=== PATIENT | male | born 1960 | race Caucasian/White ===

== ENCOUNTER 2020-11-03 10:30 | Emergency (ER) | payer MEDICARE, SELFPAY ==
[2020-11-03] VITALS (15 sets, daily range): BP systolic 121–144; BP diastolic 87–105; PULSE 55–78; RESP 16–22; TEMP 36.1; O2SAT 94–100
--- NOTE | ~2020-11-03 | XR_ITS ---
XR chest 2V DATE: 11/03/2020 11:07 INDICATION: Right-sided chest pain radiating to back. History of COPD, smoking. TECHNIQUE: PA and lateral views COMPARISON: 02/21/2019 2 view chest FINDINGS: Normal heart size. Mild atelectasis or fibrotic change of the lung bases. No pulmonary cons olidation, pleural effusion, pulmonary vascular congestion, adenopathy or pneumothorax is evident. IMPRESSION: Mild atelectasis or fibrotic change at the lung bases; otherwise no active cardiac pulmon kristyn disease Reviewed, dictated and finalized at location A. IMPRESSION: Mild atelectasis or fibrotic change at the lung bases; otherwise no active cardiac pulmonary disease
--- NOTE | 2020-11-03 10:34 | ECG_ITS ---
Measurements Intervals [place] Rate: 70 P: 33 PA: 154 QRS: 43 QRSD: 97 T: 32 QT: 380 QTc: 412 Interpretive Statements SINUS RHYTHM BASELINE ARTIFACT- I, II, III, AVR, AVF, V2-V6 NORMAL ECG Electronically Signed On 11-03-2020 17:06:45 CDT by Torito Raya D.O.
--- NOTE | 2020-11-03 10:42 | ED.GENADULT ---
HPI - General Adult General Chief complaint: Chest Pain Stated complaint: chest pain Time Seen by Provider: 11/03/20 10:35 Source: patient Mode of arrival: ambulatory Limitations: no limitations History of Present Illness HPI narrative: Patient presents for evaluation of right-sided chest pain since 11/01/2020 at 1700. He indicates he knocked a glass off the counter and bent over to catch it. In the process of doing so he felt abrupt onset of right-sided chest pain. Pain has been constant since that time but is progressively worsening. He describes the pain as stabbing but does not provide me with a numerical rating. He states that pain currently is not that bad . He also reports right-sided subscapular pain. Denies any shortness of breath, cough, leg swelling. No underlying history of hypertension, hyperlipidemia, diabetes. He does smoke half a pack per day. No illicit drug use. Related Data Home Medications Medication Instructions Recorded Confirmed tiotropium bromide 2.5 2 puff INHALATION DAILY 09/10/20 09/10/20 mcg/actuation mist for inhalation Allergies Allergy/AdvReac Type Severity Reaction Status Date / Time codeine Allergy Mild Unknown Verified 09/10/20 08:26 Review of Systems Review of Systems: Narrative: CONSTITUTIONAL: Denies fever, chills, or sweats. EYES: Denies visual changes, redness, or discharge. ENT: Denies rhinorrhea, congestion, sore throat, or otalgia. CARDIOVASCULAR: Reports right-sided chest pain. Denies palpitations, or edema. RESPIRATORY: Denies cough or dyspnea. GASTROINTESTINAL: Denies abdominal pain, nausea, vomiting, or diarrhea. GENITOURINARY: Denies dysuria or hematuria. SKIN: Denies rash or itching. MUSCULOSKELETAL: Reports right-sided back pain in the scapular region. Denies joint pain, or myalgia. NEUROLOGIC: Denies headache, numbness, dizziness, or weakness. PSYCHIATRIC: Denies anxiety or depression. [facility] Past Medical History Medical History COPD (chronic obstructive pulmonary disease) Tobacco use Surgical History Surgical History No pertinent past surgical history Family History Family History Father Alcoholism Mother Heart disease Social History Social History Smoking status: Current every day smoker Tobacco type: cigarettes Alcohol intake: current Substance use: never Substance use type: does not use Living arrangements: with family Gender identity (if verbalized by the patient): Male Sexual Orientation (if Verbalized by the Patient): Straight or Heterosexual Spiritual care concerns: No Exam Narrative: Exam Narrative: GENERAL: Well-appearing, well-nourished, and in no acute distress. HEAD: Normocephalic, atraumatic. EYES: PERRLA and EOMI. ENT: Nares clear, no rhinorrhea or epistaxis. Mucous membranes moist. Oropharynx without tonsillar hypertrophy exudate or other lesions. Bilateral TMs pearly hidalgo nonbulging NECK: Supple. No adenopathy or masses. No carotid bruits or JVD CHEST: No chest wall tenderness. Clear to auscultation. No respiratory distress. No wheezes rales or rhonchi HEART: Regular rate and rhythm. No murmur heard. Normal peripheral pulses. ABDOMEN: Soft, nontender, nondistended, normal active bowel sounds. EXTREMITIES: Normal range of motion. No edema. SKIN: Warm, dry, no rash. NEURO: No focal deficits. Alert and oriented x3. PSYCH: Normal mood and affect. Course Course Emergency Course: This is a 60-year-old male who presented with right-sided chest pain after moving abruptly in an attempt to catch a glass he knocked over two days ago. Trop was negative. EKG with no acute ischemic changes. CXR with no evidence of rib fracture. He was given toradol and flexeril with some improvement. He was later given norco and had near complete
[2020-11-03 10:50] LABS: Basophils Absolute Auto 0.1 K/mm3 (0.0-0.1); Basophils Percent Auto 0.6 % (0.2-1.2); Eosinophils Absolute Auto 0.5 K/mm3 (0-0.3); Eosinophils Percent Auto 5.1 % (0-4.4); Hematocrit 49.6 % (42.0-52.0); Hemoglobin 15.8 g/dL (14.0-18.0); Immature Granulocyte Absolute 0.02 K/mm3 (0.00-0.031); Immature Granulocyte Percent A 0.2 % (0-0.5); Lymphocytes Absolute Auto 2.38 K/mm3 (0.9-3.2); Mean Corpuscular HGB Conc 31.9 g/dl (32-36); Mean Corpuscular Hemoglobin 27.1 pg (26-34); Mean Corpuscular Volume 85.2 fl (80-100); Monocytes Absolute Auto 0.8 K/mm3 (0.1-0.6); Monocytes Percent Auto 8.8 % (2.6-8.5); Neutrophils Absolute Auto 5.1 K/mm3 (1.3-6.7); Neutrophils Percent Auto 58.3 % (45.5-73.1); Platelet Count Result 198 k/mm3 (150-375); Red Blood Count 5.82 M/mm3 (4.6-6.20); Red Cell Distribution Width 14.7 % (11.5-14.5); White Blood Count 8.8 K/mm3 (4.5-10.0)
[2020-11-03] MEDS: CYCLOBENZAPRINE HCL 10 MG TABLET PO (10:55)
[2020-11-03] MEDS: KETOROLAC 30 MG/ML VIAL (*BKC) IV PUSH (10:55)
[2020-11-03 11:00] LABS: Alanine Aminotransferase 14 U/L (4-50); Albumin Level 4.1 g/dL (3.5-5.1); Alkaline Phosphatase 101 U/L (38-126); Anion Gap 3 mmol/L (8-16); Aspartate Amino Transferase 21 U/L (17-59); Bilirubin,Total 0.6 mg/dL (0.2-1.3); Blood Urea Nitrogen 14 mg/dL (9-20); Calcium 9.2 mg/dL (8.4-10.2); Carbon Dioxide 30 mmol/L (22-30); Chloride 106 mmol/L (98-107); Estimated CRCL calculation 79 ml/min; Estimated Glomerular Filt Rate > 60; Glucose 136 mg/dL (75-110); Magnesium 2.1 mg/dL (1.6-2.3); Potassium 4.2 mmol/L (3.4-5.0); Sodium 139 mmol/L (137-145)
[2020-11-03 11:11] LABS: Troponin I < 0.012 ng/mL (0.000-0.034)
[2020-11-03] MEDS: HYDROcodone/acetaminophen (*CRX) 5-325 MG TABLET 2 TAB PO (11:28)
== END 2020-11-03 12:34 | disposition home or self-care (01) ==
PROVIDERS: Emergency Provider Nurse Practitioner; PCP Family Medicine
DX: S29.011A Strain of muscle and tendon of front wall of thorax, initial encounter (principal); J44.9 Chronic obstructive pulmonary disease, unspecified; F17.210 Nicotine dependence, cigarettes, uncomplicated; X50.9XXA Other and unspecified overexertion or strenuous movements or postures, initial encounter
CPT/HCPCS: 36415; 71046; 80053; 83735; 84484; 85025; 93005; 96374; 99284; A9270; J1885

== ENCOUNTER 2022-12-19 10:09 | Emergency (ER) | payer MEDICARE, SELFPAY ==
--- NOTE | ~2022-12-19 | XR_ITS ---
EXAMINATION: XR hand LT min 3V INDICATION: Left hand pain, initial encounter TECHNIQUE: Three views of the left hand are obtained. COMPARISON: None available FINDINGS: There is an acute, traumatic, closed, transverse fracture at the base of the fifth metacarp al with minimal widening at the fracture site. No additional fracture is identified. There is soft ti ssue swelling adjacent to the fracture. 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 IMPRESSION: 1. Acute transverse fracture at the base of the fifth metacarpal. Reviewed, dictated and finalized at location A.
[2022-12-19 10:17] VITALS: BP 134/90; PULSE 66; RESP 16; TEMP 37; O2SAT 97
--- NOTE | 2022-12-19 10:45 | ED.EXTPRO ---
HPI - Extremity Problem General Chief complaint: Extremity Injury, Upper Stated complaint: Left Hand Pain Time Seen by Provider: 12/19/22 10:33 Source: patient and RN notes reviewed Mode of arrival: ambulatory Limitations: no limitations History of Present Illness HPI Narrative: Patient presents today complaining of a left hand injury. He fell in the bathtub last night injuring his hand. He currently rates his pain 5/10, which increases with movement. He took some Tylenol and applied ice last night without much relief. Denies numbness or tingling. Related Data Home Medications Medication Instructions Recorded Confirmed budesonide-formoterol HFA 160 inhalation 12/19/22 mcg-4.5 mcg/actuation aerosol inhaler (Symbicort) tiotropium bromide 2.5 inhalation 12/19/22 mcg/actuation mist for inhalation (Spiriva Respimat) Allergies Allergy/AdvReac Type Severity Reaction Status Date / Time codeine Allergy Mild Unknown Verified 12/19/22 10:22 Review of Systems Review of Systems: CONSTITUTIONAL: Denies body aches, fever, chills, or sweats. EYES: Denies visual changes, redness, or discharge. ENT: Denies rhinorrhea, congestion, sore throat, or otalgia. CARDIOVASCULAR: Denies chest pain, palpitations, or edema. RESPIRATORY: Denies cough or dyspnea. GASTROINTESTINAL: Denies abdominal pain, nausea, vomiting, or diarrhea. GENITOURINARY: Denies dysuria or hematuria. SKIN: Denies rash, itching, or wounds. MUSCULOSKELETAL: Denies back pain, or myalgia.+ left hand pain NEUROLOGIC: Denies headache, numbness, tingling, or weakness. PSYCH: Denies depression or anxiety. [facility] Past Medical History Medical History COPD (chronic obstructive pulmonary disease) Tobacco use Surgical History Surgical History No pertinent past surgical history Family History Family History Father Alcoholism Mother Heart disease Social History Social History Smoking status: Current every day smoker Tobacco type: cigarettes Alcohol intake: current Substance use: never Substance use type: does not use Living arrangements: with family Gender identity (if verbalized by the patient): Male Sexual Orientation (if Verbalized by the Patient): Straight or Heterosexual Spiritual care concerns: No Comments At time of signature, I have reviewed and agree with nursing past medical, surgical, social and family history unless otherwise noted. Please see nursing chart for further information. There is no relevant family history pertinent to the presenting complaint Exam Narrative: GENERAL: Well-appearing, well-nourished, and in no acute distress. HEAD: Normocephalic, atraumatic. EYES: EOMI. No redness or drainage. Conjunctivae normal. ENT: Mucous membranes pink and moist. NECK: Normal AROM. CHEST: No respiratory distress. EXTREMITIES: Left hand: Tenderness along the 5th metacarpal with mild localized edema. Distal sensation intact. Capillary refill normal. Radial pulse normal. Full range of motion of all fingers. No tenderness of the wrist. SKIN: Warm, dry, no rash. Capillary refill normal. Normal skin turgor. NEURO: No focal deficits. Alert and oriented x3. Gait steady. PSYCH: Normal affect. No signs of depression or anxiety. Course Course Level of Care: Express Care Visit Vital Signs Vital signs: Vital Signs Temperature 98.6 F 12/19/22 10:17 Pulse Rate 66 12/19/22 10:17 Respiratory Rate 16 12/19/22 10:17 Blood Pressure 134/90 12/19/22 10:17 Pulse Oximetry 97 12/19/22 10:17 Oxygen Delivery Room Air 12/19/22 10:17 Temperature 98.6 F 12/19/22 10:17 Pulse Rate 66 12/19/22 10:17 Respiratory Rate 16 12/19/22 10:17 Blood Pressure 134/90 12/19/22 10:17 Pulse Oximetry 97 12/04
== END 2022-12-19 11:12 | disposition home or self-care (01) ==
PROVIDERS: Emergency Provider Nurse Practitioner; PCP Family Medicine
DX: S62.347A Nondisplaced fracture of base of fifth metacarpal bone, left hand, initial encounter for closed fracture (principal); W18.2XXA Fall in (into) shower or empty bathtub, initial encounter; J44.9 Chronic obstructive pulmonary disease, unspecified; F17.210 Nicotine dependence, cigarettes, uncomplicated
CPT/HCPCS: 29125; 73130; 99214; G0463

== ENCOUNTER 2024-10-01 10:30 | Emergency (ER) | payer MEDICARE, SELFPAY ==
--- OUTSIDE RECORDS SUMMARY | 2024-10-01 10:32 | XMS_ITS | Clinical Summary ---
Author Organization [facility] Address [address] [place] [address] Care Team Providers Care Commodity Management Specialist Name Role Phone Najma Chisholm MD Primary Care Provider [phone] Source Comments [facility],non-owned Affiliates and Associated Physician Practices is amultiple site organization consisting of ambulatory clinics and hospital sitesin [place], [place], [place] and [place]. This disclosure is being madepursuant to the Care Everywhere program and may not contain all information available regarding this patient. Last updated 18.[facility] Allergies No known active allergies Social History Tobacco Use Types Packs/Day Years Used Date Smoking Tobacco: Never Assessed Sex and Gender Information Value Date Recorded Sex Assigned at Not on file Gender Identity Not on file Sexual Orientation Not on file Plan of Treatment Health Maintenance Due Date Last Done Comments COLOGUARD (AGES 45-75) - COL ON CA SCREENING 1958 COLON MONITORING 1958 COLONOSCOPY - COLON CA SCREENING 1958 CT COLONOGRAPHY - COLON CA SCREENING 1960 Colorectal Cancer Screening 1958 FIT - COLON CA SCREENING 1958 FLEX SIG - COLON CA SCREENING 1958 LIPID TESTING 1958 HEPATITIS C SCREENING 01/02/1976 DTAP/TDAP/TD VACCINES (1 - Tdap) 1977 PNEUMOCOCCAL VACCINE 50+ (1 of 1 - PCV) 01/07/2008 ZOSTER VACCINE (1 of 2) 01/07/2008 COVID-19 VACCINE ( - 2023-2 5 season) 2024 INFLUENZA VACCINE (#1) 2024 DEPRESSION SCREENING 07/06/2024 Respiratory Syncytial Virus (RSV) Vaccine Pt: or over 60 yrs (1 - 1-dose 75+ series) 2033 HEPATITIS B VACCINE Aged Out No longe r eligible based on patient's age to complete this topic HIB VACCINE Aged Out No longer eligi ble based on patient's age to complete this topic HPV VACCINE Aged Out No longer eligi ble based on patient's age to complete this topic MENINGOCOCCAL (Group B) VACC INE SHARED DECISION-MAKING Aged Out No longer eligibl e based on patient's age to complete this topic MENINGOCOCCAL GROUPS A/C/Y/W VACCINE Aged Out No longer eligible b ased on patient's age to complete this topic Care Teams Commodity Management Specialist Relationship Specialty Start Date End Date Najma Chisholm MD [address] [place] [address] PCP - General Internal Medicine 12/26/15
--- OUTSIDE RECORDS SUMMARY | 2024-10-01 10:32 | XMS_ITS | Clinical Summary ---
Author Organization [facility] Address [address] [place] [address] Care Team Providers Care Drug Regulatory Affairs Specialist Name Role Phone Cali Jimenes Primary Care Provider Allergies No known active allergies Medications albuterol HFA (Proventil HFA) 90 mcg/actuation inhaler Proventil HFA 90 mcg/actuation aerosol inhaler Inhale 2 puff(s) 3 times a day by inhalation route as needed for 30 days. Active tiotropium bromide (SPIRIVA RESPIMAT) 2.5 mcg/actuation inhaler Inhale 1 puff daily 4 g 1 4 Active guaiFENesin-cod eine (GUAITUSS AC) liquid 100-10 mg/5 mL Take 5-10 mL by mouth every 4 (four) hours as needed for cough 240 mL 4 Active benzonatate (TESSALON) 100 mg capsuleIndicati ons:Cough Take 1 capsule (100 mg total) by mouth 3 (three) times a day as needed for cough 30 capsule 4 Active naproxen (NAPROSYN) 500 mg tablet Take 1 tablet (500 mg total) by mouth 2 (two) times a day with meals 60 tablet 2 4 Active fluticasone-ume clidin-vilanter (Trelegy Ellipta) 200-62.5-25 mcg inhaler Inhale 1 puff daily 5 Active atorvastatin (LIPITOR) 10 mg tabletIndicatio ns:Dyslipidemia Take 1 tablet (10 mg total) by mouth daily 90 tablet 12/27/19 Active Active Problems Problem Noted Date Diagnosed Date Atherosclerosis of white [place] co ronary artery of white [place] heart without angina pectoris 09/27/2024 Overview (09/27/2024): Noted on CT August 2024 Still smoking Ascending aorta dilation 09/27/2024 Overview (09/27/2024): Ascending aorta dilation 4.1cm noted on CT August 2024 Primary osteoarthritis of left knee 07/04/2024 Degenerative joint disease of hand 07/04/2024 Depressive disorder 07/04/2024 Fracture of distal end of radius and ulna 2023 Unintentional weight loss 07/04/2024 Smoking 10/14/2023 Overview (10/14/2023): CT chest screening August - repeat 1 year Smoking about a pack per week (October 2023) Diastolic dysfunction 10/14/2023 Overview (10/14/2023): Noted on Echocardiogram August 2019 No concerns or symptoms or evidence of fluid overload Routine physical examination 10/14/2023 Overview (09/27/2024): May 26, 2023 September 27, 2024 Dyslipidemia 11/07/2020 Overview (10/14/2023): Not on medication at this time Total cholesterol 205 with LDL 148 in May 2023 Pulmonary nodules 12/08/2019 Overview (09/27/2024): Following with Pulmonology Still smoking CT August 2024: Multiple small pulmonary nodules including: Unchanged 3 mm right upper lobe pulmonary nodule Unchanged 2 mm lateral left upper lobe pulmonary nodule Unchanged 2 mm subpleural right medial lower lobe pulmonary nodule versus pleural-parenchymal scarring Centrilobular emphysema 08/16/2019 Overview (10/14/2023): Still smoking but has cut down significantly (October 2023) Doing well overall on current inhalers Continue Spiriva and albuterol p.r.n. Continue with pulmonology - Dr. Palacios GERD (gastroesophageal reflux disease) Overview (09/27/2024): Chronic condition is stable not on medications Continue monitoring diet ANNA (obstructive sleep apnea) 08/16/2019 Pulmonary HTN 08/16/2019 Overview (10/14/2023): Noted on echocardiogram August 2019 No concerns or symptoms Achilles tendinosis 08/03/2019 Closed nondisplaced fracture of body of left calcaneus with routine healing 08/01/2019 Encounters Date Type Department Care Team Description 09/27/2024 8:00 AM CDT Lab [facility] Office Building [address] [place] [id number] Prostate cancer screening; Dyslipidemia; Need for hepatitis B screening test; Need for hepatitis C screening test 09/27/2024 7:30 AM CDT Office Visit [facility] [address] [place] [phone] Cali Jimenes, Centrilobular emphysema (HCC) (Primary Dx); Need for hepatitis C screening test; Diastolic dysfunction; Dyslipidemia; Gastroesophageal reflux disease without esophagitis; Pulmonary HTN (HCC); Routine physical examination; Smoking; Need for hepatitis B screening test; Prostate cancer screening; Atherosclerosis of white earth coronary artery of white earth heart without angina pectoris; Ascending aorta dilation; Pulmonary nodules 09/27/2024 Results Follow-Up [facility] [address] [place] [phone] Cali Jimenes DO Dyslipidemia (Primary Dx) 08/26/2024 Telephone [facility] [address] [place] [phone] Cali Jimenes DO Test Results (Lung CT & Pulmonology and Sleep Medicine Test) 07/04/2024 10:15 AM FLAT SORTING MACHINE CLERK Office Visit [facility] [address] [facility] [address] [place] [address] [place] [phone] Janie Barr PA Acute pain of left knee (Primary Dx); Primary osteoarthritis of left knee 07/04/2024 9:53 AM FLAT SORTING MACHINE CLERK - 07/04/2024 11:59 PM FLAT SORTING MACHINE CLERK Hospital Encounter [facility] Diag Imaging [facility] [place] [address] Acute pain of left knee Discharge Disposition: Discharge to home or self care from Last 3 Months Immunizations Immunization Administration Dates Next Due Influenza, Unspecified 09/27/2024(Deferr ed: Patient Refused),04/13/2024(Deferred: Patient Refused),04/05/2023(Deferred: Patient Refused) Surgical History Surgery Date Site/Laterality Comments FRACTURE SURGERY 2010 Medical History Medical History Date Comments COPD (chronic obstructive pulmonary disease) (HC C) Chronic bronchitis (HCC) Emphysema of lung (HCC) Family History Relation Name Status Comments Father Mother Social History Tobacco Use Types Packs/Day Years Used Date Smoking Tobacco: Every Day Cigarettes 0.5 45.2 Started: 07/06/1979 Smokeless Tobacco: Never Tobacco Cessation:Ready to Q uit: Not Asked; Counseling Given: Not Answered Alcohol Use Standard Drinks/Week Comments Never 0 (1 standard drink = 0.6 oz pur e alcohol) AUDIT-C Answer Date Recorded Q1: How often do you have a drink containing alc ohol? Never 05/02/2020 Average Number of Drinks Not on file 020 Frequency of Binge Drinking Not on file 04/06 PHQ-2 Answer Date Recorded PHQ-2 Total Score (If total score is 3 or more points, staff should administer the PHQ-9) 3 09/26/2024 PHQ-9 Answer Date Recorded PHQ-9 Total Score 10 09/26/2024 Personal Safety Answer Date Recorded Have you ever been in or are you currently in a harmful physical or emotional relationship or is someone making you feel afraid or unsafe? Denies 01/15/2024 Sex and Gender Information Value Date Recorded Sex Assigned at Not on file Legal Sex Male 8:43 PM FLAT SORTING MACHINE CLERK Gender Identity Male 08/24/2023 1:23 PM FLAT SORTING MACHINE CLERK Sexual Orientation Straight 08/24/2023 1: 23 PM FLAT SORTING MACHINE CLERK Obstetrics History Last Filed Vital Signs Vital Sign Reading Time Taken Comments Blood Pressure 116/78 09/27/2024 7:10 AM CDT Pulse 50 09/27/2024 7:10 AM CDT Temperature 36.3 C (97.4 F) 09/27/2024 7:10 AM CDT Respiratory Rate 18 09/27/2024 7:10 AM CDT Oxygen Saturation 99% 09/27/2024 7:10 AM CDT Inhaled Oxygen Concentration - - Weight 88.9 kg (196 lb) 09/27/2024 7:10 AM CDT Height 185.4 cm (6' 1 ) 09/27/2024 7:10 AM CDT Body Mass Index 25.86 09/27/2024 7:10 AM CDT Plan of Treatment Health Maintenance Due Date Last Done Comments DTaP/Tdap/Td Vaccine (1 - Tdap) 1969 Pneumococcal vaccine 65+ (1 of 2 - PCV) 1977 Zoster Vaccine (1 of 2) 01/07/2008 Abdominal Aortic Aneurysm (AAA) Screen 2023 Influenza Vaccine (#1) 2025 Postp oned from 03/06/2024 (Patient declined, but will receive in the future) Lung Cancer Screening 08/19/2025 08/19/2024 , 01/05/2023, 12/25/2021, Additional history exists Depression Screening 09/27/2025 09/27/2024, 09/27/2024, 10/14/2023 Fall Risk Assessment 09/27/2025 09/27/2024, 10/14/19 24 Well Visit 65+ 09/27/2025 09/27/2024, 09/27/2024 Prostate Cancer Screening-PSA 09/27/2026 09/27/2024, 05/26/2023 Colon Cancer Screening-Colonoscopy 08/24/2027 08/24/2017 Colon Cancer Screening-CT Colonography Discontinued 08/24/2017 Colon Cancer Screening-DNA Stool Discontinued 08/24/2017 Colon Cancer Screening-FIT Discontinued 08/24/2017 Colon Cancer Screening-Sigmoidoscopy Discontinued 08/24/2017 Hepatitis B Screening Completed 09/27/2024 Hepatitis C Screening Completed 09/27/2024 Procedures Procedure Name Priority Date/Time Associated Diagnosis Comments EGFR Routine 09/27/2024 7:49 AM CDT Dyslipidemia COMPREHENSIVE METABOLIC PANEL Routine 09/27/2024 7:49 AM CDT Dyslipidemia LIPID PANEL Routine 09/27/2024 7:49 AM CDT Dyslipidemia PSA SCREEN Routine 09/27/2024 7:49 AM CDT Prostate cancer screening HEPATITIS C ANTIBODY Routine 09/27/2024 7:49 AM CDT Need for hepatitis C screening test HEPATITIS B SURFACE ANTIGEN Routine 09/27/2024 7:49 AM CDT Need for hepatitis B screening test HEPATITIS B CORE ANTIBODY, TOTAL Routine 09/27/2024 7:49 AM CDT Need for hepatitis B screening test HEPATITIS B SURFACE ANTIBODY (IMMUNE STATUS) Routine 09/27/2024 7:49 AM CDT Need for hepatitis B screening test XR KNEE LEFT 3 VIEWS Schedule Routine, Read Routine (OP Routine) 07/04/2024 9:59 AM FLAT SORTING MACHINE CLERK Acute pain of left knee COLONOSCOPY Routine 08/24/2017 from Last 3 Months or Most Recently Relevant to Health Maintenance Results * eGFR (09/27/2024 7:49 AM CDT) eGFR >90 >=60 mL/min/1. 73 m2 Comment: Interpretive Data Reference Interval Normal >/= 90 mL/min/1.73m2 Mildly decreased* 60 - 89 mL/min/1.73m2 Mildly to moderately decreased 45 - 59 mL/min/1.73m2 Moderately to severely decreased 30 - 44 mL/min/1.73m2 Severely decreased 15 - 29 mL/min/1.73m2 Kidney Failure < 15 mL/min/1.73m2 *Relative to young adult level Estimated glomerular filtration rate is determined by the 2020 CKD-EPI equation recommended by the National Kidney Foundation (A Unifying Approach to GFR Estimation: Recommendations of the NKF-ASK Task Force on Reassessing the Inclusion of Race in Diagnosing Kidney Disease, JASN 2020). The CKD-EPI equation should not be used for patients with unstable renal function and has not been validated in children and those over 70. Current interpretive data was last reviewed 2021. Testing performed by: [address] [address] Blood 09/27/2024 7:49 AM CDT 09/27/2024 10:05 AM CDT [facility] LAB BLOOD ORDERABLES F inal Result Performing Organization Address [place] Co de Phone Number JAMEY [address] [employer] [address] * PSA screen (09/27/2024 7:49 AM CDT) PSA-Total 0.63 <=5.40 ng/mL Comment: Interpretive Data AGE SEX REFERENCE INTERVAL 0 minutes-150 years Female None 0 minutes-49 years Male None 50-59 years Male 0-3.90 60-69 years Male 0-5.40 70-79 years Male 0-6.20 80-150 years Male 0-6.20 The Agapito PSA Total assay procedure was used. Results from different manufacturers or methods may not be comparable. Serial testing should be performed using the same method. Current interpretive data last revised 21. Testing performed by: [address] [address] Blood 09/27/2024 7:49 AM CDT 09/27/2024 10:05 AM CDT [facility] LAB BLOOD ORDERABLES F inal Result Performing Organization Address [place] Co de Phone Number MARLA[address] [place] [place] [address] * Hepatitis C antibody Blood (09/27/2024 7:49 AM CDT) Hep C Ab Nonreactive Nonreactive Comment: Antibodies to HCV not detected. Does NOT exclude the possibility of recent exposure to HCV. Current interpretive data was last revised on 22 Interpretive Data Nonreactive: Antibodies to HCV not detected. Does NOT exclude the possibility of recent exposure to HCV. Equivocal: Equivocal for HCV antibodies. Supplemental molecular testing will be automatically performed to determine infection status in accordance with current CDC screening recommendations. Reactive: Positive for HCV antibodies. This may represent current or past HCV infection. Supplemental molecular testing will be automatically performed to determine current infection status in accordance with current CDC screening recommendations. Interpretive data was last revised on 2019. Blood 09/27/2024 7:49 AM CDT 09/27/2024 10:21 AM CDT Cali [facility] LAB MICROBIOLOGY - GEN ERAL ORDERABLES Final Result Performing Organization Address [place]/[facility] Co de Phone Number MARLA[address] [place] [address] * Hepatitis B core antibody, total Blood (09/27/2024 7:49 AM CDT) Pathologist [facility] Hep B core IgG/IgM Nonreactive Nonreactive Comment:Testing performed by : [facility], [address] [place]., [address] Blood 09/27/2024 7:49 AM CDT 09/27/2024 1:12 PM CDT [facility] MICROBIOLOGY - GEN ERAL ORDERABLES Final Result Performing Organization Address [place]/[facility] Co de Phone Number [address] [address] * Hepatitis B surface antibody (immune status) Blood (09/27/2024 7:49 AM CDT) Pathologist [facility] HBsAb (immune status) Nonreactive Comment: Interpretive Data Nonreactive: This result is consistent with a lack of immunity to Hepatitis B Virus when used in the setting of routine screening. Equivocal: The immune status of the individual should be further assessed, if appropriate, after consideration of clinical status, risk factors, and additional diagnostic information. Reactive: This result is consistent with immunity to Hepatitis B Virus when used in the setting of routine screening. Current interpretive data was last revised on 19. Blood 09/27/2024 7:49 AM CDT 09/27/2024 10:21 AM CDT Cali Osito Camas DO LAB MICROBIOLOGY - GEN ERAL ORDERABLES Final Result Performing Organization Address [place] Co de Phone Number [place] [phone] [facility] [place] [place] [address] * Hepatitis B Surface Antigen Blood (09/27/2024 7:49 AM CDT) HepBsAg Nonreactive Nonreactive Blood 09/27/2024 7:49 AM CDT 09/27/2024 10:21 AM CDT Cali Osito Jalil DO LAB MICROBIOLOGY - GEN ERAL ORDERABLES Final Result Performing Organization Address [place] de Phone Number [place] [phone] [place] [address] * (ABNORMAL) Lipid panel (09/27/2024 7:49 AM CDT) Cholesterol 211(H) 30 - 199 mg/dL Comment: Interpretive Data Ages < or = 19 years Acceptable: <170 mg/dL Borderline high: 170-199 mg/dL High: >or= 200 mg/dL Ages > or = 20 years Desirable: <200 mg/dL Borderline high: 200-239 mg/dL High: >or= 240 mg/dL Literature References: 1. Expert Panel on Integrated Guidelines for Cardiovascular Health and Risk Reduction in Children and Adolescents. Pediatrics 2011;128:S213 2. NCEP Expert Panel. Circulation 2004;110:227 Current Interpretive Data was last revised on 2018. Testing performed by: [facility], [address] [place] [address]., [address] Triglycerides 131 <=149 mg/dL [facility] Comment: Interpretive Data Ages < or = 9 years Acceptable: <75 mg/dL Borderline high: 75-99 mg/dL High: >or= 100 mg/dL Ages 10 to 20 years Acceptable: <90 mg/dL Borderline high: 90-129 mg/dL High: >or= 130 mg/dL Ages > or = 20 years Desirable: <150 mg/dL Borderline high: 150-199 mg/dL High: 200-499 mg/dL Very high: >or= 499 mg/dL Literature References: 1. Expert Panel on Integrated Guidelines for Cardiovascular Health and Risk Reduction in Children and Adolescents. Pediatrics 2011;128:S213 2. NCEP Expert Panel. Circulation 2004;110:227 Current Interpretive Data was last revised on 2018. Testing performed by: [address] [address] HDL 31(L) >=40 mg/dL JAMEY Comment: Interpretive Data Ages < or = 19 years Acceptable: >45 mg/dL Borderline low: 40-45 mg/dL Low: <40 mg/dL Ages > or = 20 years Desirable: >or= 60 mg/dL Low: <40 mg/dL Literature References: 1. Expert Panel on Integrated Guidelines for Cardiovascular Health and Risk Reduction in Children and Adolescents. Pediatrics 2011;128:S213 2. NCEP Expert Panel. Circulation 2004;110:227 Current Interpretive Data was last revised on 2018. Testing performed by: [address] [address] LDL, calculated 156(H) <=129 mg/dL JAMEY Comment: Interpretive Data Ages < or = 19 years Acceptable: <110 mg/dL Borderline high: 110-129 mg/dL High: >or= 130 mg/dL Ages > or = 20 years Optimal: <100 mg/dL Near optimal: 100-129 mg/dL Borderline high: 130-159 mg/dL High: >160 mg/dL Calculated using the Carlos LDL-C estimating equation. This equation was implemented on 2024. Prior to this date LDL-C was estimated using the Friedewald equation. Literature References: 1. Expert Panel on Integrated Guidelines for Cardiovascular Health and Risk Reduction in Children and Adolescents. Pediatrics 2011;128:S213 2. NCEP Expert Panel. Circulation 2004;110:227 3. Carlos Edward et al. FRAN Cardiol. 2020 November 03;5(5):540-548. doi: 10.1001/[email or web address].2020.0013 Current Interpretive Data was last revised on 2024. Testing performed by: [address] [address] Non-HDL Cholesterol 180 mg/dL JAMEY SAMAYOA Comment: Interpretive Data Ages < or = 19 years Acceptable: <120 mg/dL Borderline high: 120-144 mg/dL High: >145 mg/dL Ages > or = 20 years When triglycerides are >200 mg/dL, Non-HDL cholesterol is a secondary target of therapy with treatment goals that are 30 mg/dL greater than the LDL cholesterol target. Literature References: 1. Expert Panel on Integrated Guidelines for Cardiovascular Health and Risk Reduction in Children and Adolescents. Pediatrics 2011;128:S213 2. NCEP Expert Panel. Circulation 2004;110:227 Current Interpretive Data was last revised on 2018. Testing performed by: [address] [address] Chol/HDL ratio 7 JAMEY Comment:Testing performed by : [address] [address] Blood 09/27/2024 7:49 AM CDT 09/27/2024 10:05 AM CDT Cali Jimenes LAB BLOOD ORDERABLES F inal Result JAMEY [address] [facility] Department of Laboratories [place], [place] [id number] * (ABNORMAL) Comprehensive metabolic panel (09/27/2024 7:49 AM CDT) Sodium 140 135 - 145 mmol/L Comment:Testing performed by : [address] [address] Potassium, pl 4.6 3.3 - 4.9 mmol/L JAMEY SAMAYOA Comment:Testing performed by : [address] [address] Chloride 103 97 - 110 mmol/L JAMEY Comment:Testing performed by : [address] [address] CO2 26 22 - 32 mmol/L JAMEY Comment:Testing performed by : [address] [address] Anion gap 11 2 - 15 mmol/L JAMEY Comment:Testing performed by : [address] [address] BUN 10 6 - 25 mg/dL JAMEY Comment:Testing performed by : [address], [place]., [address] Creatinine 0.90 0.80 - 1.30 mg/dL JAMEY Comment:Testing performed by : [address] [address] Glucose 103 70 - 199 mg/dL JAMEY Comment: Interpretive Data Fasting glucose >/= 126 mg/dl is diagnostic for diabetes. Fasting is defined as no caloric intake for at least 8 hours. Fasting glucose between 100 mg/dl to 125 mg/dl is diagnostic of prediabetes. In a patient with classic symptoms of hyperglycemia or hyperglycemic crisis, a random glucose >/= 200 mg/dl is diagnostic for diabetes. In the absence of unequivocal hyperglycemia, results should be confirmed by repeat testing. The classification and Diagnosis of Diabetes Diabetes Care 2021; 46: S19-S40. Current interpretive data was last revised 2022. Testing performed by: [address] [address] Calcium 9.3 8.5 - 10.3 mg/dL JAMEY Comment:Testing performed by : [address] [address] Bilirubin, total 0.8 0.1 - 1.2 mg/dL JAMEY Comment:Testing performed by : [address] [address] Protein, pl 7.3 6.5 - 8.5 g/dL JAMEY Comment:Testing performed by : [address] [address] Albumin 4.0 3.5 - 5.0 g/dL JAMEY Comment:Testing performed by : [address] [address] Alk phos 114 40 - 130 Units/L JAMEY Comment:Testing performed by : [address] [address] ALT 6(L) 7 - 55 Units/L JAMEY SAMAYOA Comment:Testing performed by : [address] [address] AST 17 10 - 50 Units/L JAMEY SAMAYOA Comment:Testing performed by : [address] [address] Blood 09/27/2024 7:49 AM CDT 09/27/2024 10:05 AM CDT us Cali Mcneill [facility] LAB BLOOD ORDERABLES F inal Result JAMEY SAMAYOA [address] [facility] Department [place] [address] * XR Knee Left 3 Views (07/04/2024 9:59 AM FLAT SORTING MACHINE CLERK) Anatomical Region Laterality Modality Lower Extremities, Knee Left Computed Radiography 07/05/2024 6:40 AM FLAT SORTING MACHINE CLERK Narrative 07/05/2024 6:47 AM FLAT SORTING MACHINE CLERK EXAM DESCRIPTION: XR KNEE LEFT 3 VIEWS REASON FOR STUDY: pain Medial side knee pain x 2 wks, NKI FINDINGS: Three views submitted with comparison 05/14/2021. No acute fractures are identified. There is mild medial and patellofemoral bicompartmental left knee osteoarthritis. Chondrocalcinosis is present with likely extrusion of the medial meniscus into the medial gutter. There is no effusion. IMPRESSION: Mild medial and patellofemoral bicompartmental left knee osteoarthritis. Chondrocalcinosis with likely extrusion of the medial meniscus into the medial gutter. This can be further evaluated with MRI. THIS IS AN ELECTRONICALLY VERIFIED FINAL REPORT 07/05/2024 6:47 AM - Electronically signed by Thor Carcamo M.D. T: Report ID: [id number] Reading Location: [place] [address] Procedure Note Thor Carcamo MD - 07/05/2024 EXAM DESCRIPTION: XR KNEE LEFT 3 VIEWS REASON FOR STUDY: pain Medial side knee pain x 2 wks, NKI FINDINGS: Three views submitted with comparison 05/14/2021. No acute fractures are identified. There is mild medial andpatellofemoral bicompartmental left knee osteoarthritis. Chondrocalcinosis is presentwith likely extrusion of the medial meniscus into the medial gutter. There isno effusion. IMPRESSION: Mild medial and patellofemoral bicompartmental left kneeosteoarthritis. Chondrocalcinosis with likely extrusion of the medial meniscus into the medial gutter. This can be further evaluated with MRI. THIS IS AN ELECTRONICALLY VERIFIED FINAL REPORT 07/05/2024 6:47 AM - Electronically signed by Thor Carcamo M.D. T: Report ID: [id number] Reading Location: [id number] Janie FLORES IMG XR PROCEDURES Final R esult * Colonoscopy (08/24/2017) Anatomical Region Laterality Modality Other Historical Provider ENDOSCOPY PROCEDURES Arlen l Result from Last 3 Months or Most Recently Relevant to Health Maintenance Insurance [employer] MEDICARE HMO HU[employer] MEDICARE HMO Care Teams Drug Regulatory Affairs Specialist Relationship Specialty Start Date End Date Cali Jimenes DO PCP - General Family Practice 12/22/22
--- OUTSIDE RECORDS SUMMARY | 2024-10-01 10:32 | XMS_ITS | Clinical Summary ---
Author Organization [facility] Address [address] [place] [address] Phone Care Team Providers Care Locomotive Engineer Name Role Phone Cali Jimenes Primary Care Provider Mello Palacios MD Unavailable Allergies No known active allergies Medications omeprazole (PRILOSEC) 20 MG CAPSULE DELAYED RELEASE Take 20 mg by mouth daily. Active albuterol 108 (90 Base) MCG/ACT Aerosol Solution take 2 Puffs by inhalation every 4 hours as needed. Active atorvastatin (LIPITOR) 20 MG Tablet Take 20 mg by mouth daily. 0 Active budesonide-form oterol fumarate (SYMBICORT) 160-4.5 MCG/ACT Aerosol take 2 Puffs by inhalation 2 times daily. 10.7 g 3 2 Active Additional Information Patient not taking.Reported on 07/18/2024 tiotropium (SPIRIVA RESPIMAT) 2.5 MCG/ACT Aerosol Solution take 2 Puffs by inhalation daily. 10.7 g 3 2 Active Fluticasone-Ume clidin-Vilant (Trelegy Ellipta) 100-62.5-25 MCG/ACT AEROSOL POWDER, BREATH ACTIVATED take 1 Puff by inhalation daily. 1 Each 6 5 Active Fluticasone-Ume clidin-Vilant (Trelegy Ellipta) 200-62.5-25 MCG/ACT AEROSOL POWDER, BREATH ACTIVATEDIndica tions:Centrilob ular emphysema (HCC) take 1 Puff by inhalation daily. 5 Active Active Problems Problem Noted Date Diagnosed Date Nodule of upper lobe of right lung 12/08/2019 Centrilobular emphysema 08/16/2019 Tobacco use disorder 08/16/2019 Pulmonary HTN 08/16/2019 GERD (gastroesophageal reflux disease) 0 ANNA (obstructive sleep apnea) 08/16/2019 Encounters Date Type Department Care Team Description 08/23/2024 Results Follow-Up [facility] Pulmonology & Sleep Medicine [facility] [address] [place] [address] Mello Palacios MD Personal history of tobacco use, presenting hazards to health (Primary Dx) 08/19/2024 9:33 AM SOLICITING FREIGHT AGENT - 08/19/2024 11:59 PM SOLICITING FREIGHT AGENT Hospital En[facility] [address] [place] [address] Mello Palacios MD Discharge Disposition: Discharged to home or Selfcare 08/17/2024 Travel 08/02/2024 Telephone [facility] Pulmonology & Sleep Medicine [facility] [address] [place] [address] Mello Palacios MD Medication Management 07/31/2024 Travel 07/27/2024 10:48 AM SOLICITING FREIGHT AGENT - 07/27/2024 11:59 PM SOLICITING FREIGHT AGENT Hospital Encounter [facility] Respiratory Therapy [address] [place] [address] Mello Palacios MD Discharge Disposition: Discharged to home or Selfcare 07/25/2024 Travel 07/18/2024 10:45 AM SOLICITING FREIGHT AGENT Office Visit [facility] Pulmonology & Sleep Medicine [facility] [address] [place] [address] Mello Palacios MD Centrilobular emphysema (HCC) (Primary Dx); Nodule of upper lobe of right lung; Tobacco use disorder Discharge Disposition: Discharged to home or Selfcare 07/16/2024 Travel from Last 3 Months Family History Medical History Relation Name Comments Alcohol Abuse Father Heart Disease Mother Relation Name Status Comments Father Mother Social History Tobacco Use Types Packs/Day Years Used Date Smoking Tobacco: Some Days Cigarettes 0.5 40 Smokeless Tobacco: Never Tobacco Cessation:Ready to Q uit: Yes; Counseling Given: Yes Comments:donw to a couple a day Alcohol Use Standard Drinks/Week Comments Never 0 (1 standard drink = 0.6 oz pur e alcohol) AUDIT-C Answer Date Recorded Frequency of Alcohol Consumption Never 08/16/2019 Average Number of Drinks Not on file 020 Frequency of Binge Drinking Not on file 08/06 Sexually Active Control Partners Comments Not Currently Sex and Gender Information Value Date Recorded Sex Assigned at Not on file Legal Sex Male 11:58 PM CDT Gender Identity Not on file Sexual Orientation Not on file Last Filed Vital Signs Vital Sign Reading Time Taken Comments Blood Pressure 120/72 07/18/2024 11:04 AM SOLICITING FREIGHT AGENT Pulse 70 07/18/2024 11:04 AM SOLICITING FREIGHT AGENT Temperature 36.4 C (97.6 F) 07/18/2024 11:04 AM SOLICITING FREIGHT AGENT Respiratory Rate 14 07/18/2024 11:04 AM SOLICITING FREIGHT AGENT Oxygen Saturation 96% 07/18/2024 11:04 AM SOLICITING FREIGHT AGENT Inhaled Oxygen Concentration - - Weight 90.4 kg (199 lb 4.8 oz) 07/18/2024 11:04 AM SOLICITING FREIGHT AGENT Height 188 cm (6' 2 ) 07/18/2024 11:04 AM SOLICITING FREIGHT AGENT Body Mass Index 25.59 07/18/2024 11:04 AM SOLICITING FREIGHT AGENT Plan of Treatment Upcoming Encounters Date Type Department Care Team (Late st Contact Info) Description 10/21/2024 10:15 AM CDT Office Visit [facility] - Pulmonology & Sleep Medicine [facility] [address] [place] [phone] Mello Palacios MD [address] [facility] [address] Health Maintenance Due Date Last Done Comments Hepatitis C Virus (HCV) Screening 1960 TdaP Immunization 1960 Pneumococcal Immunization (50+ years) (1 of 2 - PCV) 1977 Cologuard 01/07/2008 Immunochemical Fecal Occult Blood 01/07/2008 Zoster Immunization (1 of 2) 01/07/2008 PSA Discussion 2013 Respiratory Syncytial Virus (RSV) Immunization (Adult) (1 - Risk 60-74 years 1-dose series) 2018 AAA Screening Ultrasound 2023 Influenza Immunization (#1) 2024 SARS-COV-2 Immunization ( season) 2024 Lung Cancer Screening 08/19/2025 08/19/2024 , 01/05/2023, 12/25/2021, Additional history exists Colonoscopy 08/24/2027 08/24/2017 Colorectal Cancer Screening 08/24/2027 08/24/2017 Hepatitis B Immunization Aged Out No longer eligible based on patient's age to complete this topic Meningococcal Immunization (ACWY) Aged Out No longer eligible based on patient's age to complete this topic Rotavirus Immunization Aged Out No lo nger eligible based on patient's age to complete this topic Procedures Procedure Name Priority Date/Time Associated Diagnosis Comments CT CHEST SCREENING WO Routine 08/19/2024 9:48 AM SOLICITING FREIGHT AGENT Tobacco use disorder COMPLETE PFT W + W/O BRONCHODILATOR Routine 07/27/2024 Centrilobular emphysema (HCC) from Last 3 Months Results * CT CHEST SCREENING WO (08/19/2024 9:48 AM SOLICITING FREIGHT AGENT) Anatomical Region Laterality Modality Chest N/A Computed Tomogra phy 08/19/2024 2:11 PM SOLICITING FREIGHT AGENT Impressions 08/19/2024 2:14 PM SOLICITING FREIGHT AGENT IMPRESSION: Unchanged small pulmonary nodules. No new suspicious pulmonary nodules. Mluqmytz-js-illtwz emphysematous changes. Diffuse bronchial wall thickening which can be seen with chronic bronchitis. Severe coronary atherosclerotic calcifications. Mildly dilated ascending thoracic aorta measuring up to 4.1 cm. Lung-RADS category 2S: Benign appearance or behavior. Finding other than a pulmonary nodule which is potentially clinically significant. Recommendation: Low dose Screening CT of chest in 12 months. Narrative 08/19/2024 2:14 PM SOLICITING FREIGHT AGENT EXAM DESCRIPTION: CT CHEST SCREENING WO REASON FOR STUDY: Screening CT of the chest in a current smoker with a 44 pack year smoking history. Additional history: None. TECHNIQUE: Low dose CT scan of the chest was performed without intravenous contrast using helical scanning technique. The exam extends from the lung apices through the lung bases. Automatic exposure control was used as a dose optimization technique. NOTE: This study was performed for the specific purposes of lung cancer screening and is not an alternative to diagnostic chest CT. RADIATION DOSE: CT dose index volume (CTDIvol) = 3.62 mGy COMPARISON: 08/23/2019, 12/25/2021, 01/05/2023 FINDINGS: SMOKING RELATED LUNG DISEASE: Aoohkldz-mu-mncxsb emphysematous changes. Diffuse bronchial wall thickening which is nonspecific but can be seen with chronic bronchitis. Subsegmental mucous plugging noted medial right upper lobe. Biapical pleural-parenchymal scarring. LUNG NODULES: Multiple small pulmonary nodules including: Unchanged 3 mm right upper lobe pulmonary nodule (5; 88). Unchanged 2 mm lateral left upper lobe pulmonary nodule (5; 69). Unchanged 2 mm subpleural right medial lower lobe pulmonary nodule versus pleural-parenchymal scarring (5; 209). No new suspicious pulmonary nodules. CORONARY ARTERY CALCIFICATION: Severe. OTHER: No focal consolidation, pneumothorax, or pleural effusion. Mildly dilated ascending thoracic aorta measuring up to 4.1 cm at the level of the main pulmonary artery. Heart size within normal limits. No pathologically enlarged lymphadenopathy. No definite acute abnormality within the visualized abdomen. Osteopenia. No aggressive appearing osseous lesions. No acute osseous abnormality. THIS IS AN ELECTRONICALLY VERIFIED FINAL REPORT 08/19/2024 2:11 PM - Electronically signed by Jhonny Silva M.D. NS: NS Report ID: [id number] Reading Location: [id number] Procedure Note Jhonny Silva MD - 08/19/2024 EXAM DESCRIPTION: CT CHEST SCREENING WO REASON FOR STUDY: Screening CT of the chest in a current smoker with a 44 pack year smoking history. Additional history: None. TECHNIQUE: Low dose CT scan of the chest was performed without intravenous contrast using helical scanning technique. The exam extends from the lung apices through the lung bases. Automatic exposure control was used as a dose optimization technique. NOTE: This study was performed for the specific purposes of lung cancer screening and is not an alternative to diagnostic chest CT. RADIATION DOSE: CT dose index volume (CTDIvol) = 3.62 mGy COMPARISON: 08/23/2019, 12/25/2021, 01/05/2023 FINDINGS: SMOKING RELATED LUNG DISEASE: Swngzmuy-nh-aozvku emphysematous changes. Diffuse bronchial wall thickening which is nonspecific but can be seen with chronic bronchitis. Subsegmental mucous plugging noted medial right upper lobe. Biapical pleural-parenchymal scarring. LUNG NODULES: Multiple small pulmonary nodules including: Unchanged 3 mm right upper lobe pulmonary nodule (5; 88). Unchanged 2 mm lateral left upper lobe pulmonary nodule (5; 69). Unchanged 2 mm subpleural right medial lower lobe pulmonary nodule versus pleural-parenchymal scarring (5; 209). No new suspicious pulmonary nodules. CORONARY ARTERY CALCIFICATION: Severe. OTHER: No focal consolidation, pneumothorax, or pleural effusion. Mildly dilated ascending thoracic aorta measuring up to 4.1 cm at the level of the main pulmonary artery. Heart size within normal limits. No pathologically enlarged lymphadenopathy. No definite acute abnormality within the visualized abdomen. Osteopenia. No aggressive appearing osseous lesions. No acute osseous abnormality. THIS IS AN ELECTRONICALLY VERIFIED FINAL REPORT 08/19/2024 2:11 PM - Electronically signed by Jhonny Silva M.D. NS: NS Report ID: [id number] Reading Location: [place] [address] IMPRESSION: Unchanged small pulmonary nodules. No new suspicious pulmonary nodules. Hrqbbqbm-we-cemhed emphysematous changes. Diffuse bronchial wall thickening which can be seen with chronic bronchitis. Severe coronary atherosclerotic calcifications. Mildly dilated ascending thoracic aorta measuring up to 4.1 cm. Lung-RADS category 2S: Benign appearance or behavior. Finding other than a pulmonary nodule which is potentially clinically significant. Recommendation: Low dose Screening CT of chest in 12 months. Mello Palacios MD [facility] CT ORDERABLES Final Result from Last 3 Months Insurance MEDICARE C HUMANA Care Teams Locomotive Engineer Relationship Specialty Start Date End Date Cali Jimenes DO PCP - General Family Medicine 08/23/19 Mello Palacios MD [address] [place] [phone] Consulting Physician Pulmonary Disease 03/04/22
--- OUTSIDE RECORDS SUMMARY | 2024-10-01 10:32 | XMS_ITS | Referral Summary ---
Author Organization [facility] Address [address] [place] [address] Care Team Providers Care Client Relations Representative Name Role Phone Cali Jimenes DO Primary Care Provider Encounters Date Type Department Care Team Description 09/27/2024 Results Follow-Up [facility] Primary Care [address] [place] [address] [phone] Cali Jimenes DO Dyslipidemia (Primary Dx) 09/27/2024 8:00 AM CDT Lab [facility] [address] [place] [id number] Prostate cancer screening; Dyslipidemia; Need for hepatitis B screening test; Need for hepatitis C screening test 09/27/2024 7:30 AM CDT Office Visit [facility] Primary Care [address] [place] [address] [phone] Cali Jimenes DO Centrilobular emphysema (HCC) (Primary Dx); Need for hepatitis C screening test; Diastolic dysfunction; Dyslipidemia; Gastroesophageal reflux disease without esophagitis; Pulmonary HTN (HCC); Routine physical examination; Smoking; Need for hepatitis B screening test; Prostate cancer screening; Atherosclerosis of bad river band coronary artery of bad river band heart without angina pectoris; Ascending aorta dilation; Pulmonary nodules 08/26/2024 Telephone [facility] Primary Care [address] [place] [address] [phone] Cali Jimenes DO Test Results (Lung CT & Pulmonology and Sleep Medicine Test) 07/04/2024 9:53 AM GRAPHICS PROGRAMMER - 07/04/2024 11:59 PM GRAPHICS PROGRAMMER Hospital Encounter [facility] Di[facility] [address] [place] [id number] Acute pain of left knee Discharge Disposition: Discharge to home or self care 07/04/2024 10:15 AM GRAPHICS PROGRAMMER Office Visit [facility] Orthopedics and Sports Medicine [address] [place] [address] [address] [place] [phone] Janie Barr PA Acute pain of left knee (Primary Dx); Primary osteoarthritis of left knee from Last 3 Months Allergies No known active allergies Medications albuterol [...] mg total) by mouth daily 90 tablet 5 12/27/19 25 Active Active Problems Problem Noted Date Diagnosed Date Atherosclerosis of [place] co ronary artery of [place] heart without angina pectoris 09/27/2024 Overview (09/27/2024): [...] - Dr. Palacios GERD (gastroesophageal reflux disease) 0 Overview (09/27/2024): Chronic condition is stable not on medications Continue monitoring diet ANNA (obstructive sleep apnea) 08/16/2019 Pulmonary HTN 08/16/2019 Overview (10/14/2023): Noted on echocardiogram August 2019 No concerns or symptoms Achilles tendinosis 08/03/2019 Closed nondisplaced fracture of body of left calcaneus with routine healing 08/01/2019 Immunizations Immunization Administration Dates Next Due Influenza, Unspecified 09/27/2024(Deferr ed: Patient Refused),04/13/2024(Deferred: Patient Refused),04/05/2023(Deferred: Patient Refused) Social History Tobacco Use Types Packs/Day Years [...] on file Legal Sex Male 8:43 PM GRAPHICS PROGRAMMER Gender Identity Male 08/24/2023 1:23 PM GRAPHICS PROGRAMMER Sexual Orientation Straight 08/24/2023 1: 23 PM GRAPHICS PROGRAMMER Last Filed Vital Signs Vital Sign Reading [...] 09/27/2024 7:10 AM CDT Plan of Treatment Not on file Procedures Procedure Name Priority Date/Time Associated Diagnosis [...] Read Routine (OP Routine) 07/04/2024 9:59 AM GRAPHICS PROGRAMMER Acute pain of left knee COLONOSCOPY Routine [...] was last reviewed 2021. Testing performed by: [address] [address] Blood 09/27/2024 7:49 AM CDT 09/27/2024 10:05 AM CDT Cali Jimenes DO LAB BLOOD ORDERABLES F inal Result JAMEY [address] [facility] [place] [address] * PSA screen (09/27/2024 7:49 AM CDT) [...] data last revised 21. Testing performed by: [address] [address] Blood 09/27/2024 7:49 AM CDT 09/27/2024 10:05 AM CDT [facility]ABLES F inal Result Performing Organization Address [facility] Co de Phone Number JAMEY [address] [address] * Hepatitis C antibody Blood (09/27/2024 7:49 [...] AM CDT 09/27/2024 10:21 AM CDT [facility] LAB MICROBIOLOGY - GEN ERAL ORDERABLES Final Result Performing Organization Address [facility] Co de Phone Number JAMEY [address] [place] [address] * Hepatitis B core antibody, total Blood (09/27/2024 7:49 AM CDT) Hep B core IgG/IgM Nonreactive Nonreactive Comment:Testing performed by : [facility], [address] [facility], [place]., [address] Blood 09/27/2024 7:49 AM CDT 09/27/2024 1:12 PM CDT Cali Osito Jalil DO LAB MICROBIOLOGY - GEN ERAL ORDERABLES Final Result Performing Organization Address City/[facility]/ZIP Co de Phone Number [place] [phone] [facility] [place] [address] * Hepatitis B surface antibody (immune status) Blood (09/27/2024 7:49 AM CDT) [facility] HBsAb (immune status) Nonreactive Comment: Interpretive Data [...] AM CDT 09/27/2024 10:21 AM CDT Cali Mcneill Jalil DO LAB MICROBIOLOGY - GEN ERAL ORDERABLES Final Result Performing Organization Address [facility] de Phone Number [address] [address] * Hepatitis B Surface Antigen Blood (09/27/2024 7:49 AM CDT) [facility] HepBsAg Nonreactive Nonreactive Blood 09/27/2024 7:49 AM CDT 09/27/2024 10:21 AM CDT [facility] MICROBIOLOGY - GEN ERAL ORDERABLES Final Result Performing Organization Address [facility] de Phone Number [place] [phone] [facility] [place] [address] * (ABNORMAL) Lipid panel (09/27/2024 7:49 AM CDT) [facility] Cholesterol 211(H) 30 - 199 mg/dL Comment: [...] last revised on 2018. Testing performed by: [address] [address] Triglycerides 131 <=149 mg/dL JAMEY Comment: Interpretive Data Ages < [...] last revised on 2018. Testing performed by: [address] [address] HDL 31(L) >=40 mg/dL JAMEY Comment: Interpretive [...] last revised on 2018. Testing performed by: [address] [address] LDL, calculated 156(H) <=129 mg/dL JAMEY Comment: [...] last revised on 2024. Testing performed by: [address] [address] Non-HDL Cholesterol 180 mg/dL JAMEY SAMAYOA Comment: [...] last revised on 2018. Testing performed by: [address] [address] Chol/HDL ratio 7 JAMEY SAMAYOA Comment:Testing performed by : [address] [address] Blood 09/27/2024 7:49 AM CDT 09/27/2024 10:05 AM CDT us Cali Jimenes DO LAB BLOOD ORDERABLES F inal Result JAMEY SAMAYOA [address] [facility] Department [place] [address] * (ABNORMAL) Comprehensive metabolic panel (09/27/2024 7:49 AM CDT) Sodium 140 135 - 145 mmol/L Comment:Testing performed by : [address] [address] Potassium, pl 4.6 3.3 - 4.9 mmol/L JAMEY Comment:Testing performed by : [address], [place]., [address] Chloride 103 97 - 110 mmol/L JAMEY Comment:Testing performed by : [address], [place]., [address] CO2 26 22 - 32 mmol/L JAMEY Comment:Testing performed by : [address] [address] Anion gap 11 2 - 15 mmol/L JAMEY Comment:Testing performed by : [address], [place]., [address] BUN 10 6 - 25 mg/dL JAMEY Comment:Testing performed by : [address] [address] Creatinine 0.90 0.80 - 1.30 mg/dL JAMEY Comment:Testing performed by : [address] [address] Glucose 103 70 - 199 mg/dL JAMEY [...] was last revised 2022. Testing performed by: [address] [address] Calcium 9.3 8.5 - 10.3 mg/dL JAMEY Comment:Testing performed by : [address], [place]., [address] Bilirubin, total 0.8 0.1 - 1.2 mg/dL JAMEY SAMAYOA Comment:Testing performed by : [address] [address] Protein, pl 7.3 6.5 - 8.5 g/dL JAMEY Comment:Testing performed by : [address] [address] Albumin 4.0 3.5 - 5.0 g/dL JAMEY Comment:Testing performed by : [address] [address] Alk phos 114 40 - 130 Units/L JAMEY Comment:Testing performed by : [address] [address] ALT 6(L) 7 - 55 Units/L JAMEY Comment:Testing performed by : [address] [address] AST 17 10 - 50 Units/L JAMEY Comment:Testing performed by : [address] [address] Blood 09/27/2024 7:49 AM CDT 09/27/2024 10:05 AM CDT Cali Jimenes LAB BLOOD ORDERABLES F inal Result JAMEY SAMAYOA [address] [facility] [place] [address] * XR Knee Left 3 Views (07/04/2024 9:59 AM GRAPHICS PROGRAMMER) Anatomical Region Laterality Modality Lower Extremities, Knee Left Computed Radiography 07/05/2024 6:40 AM GRAPHICS PROGRAMMER Narrative 07/05/2024 6:47 AM GRAPHICS PROGRAMMER EXAM DESCRIPTION: XR KNEE LEFT 3 VIEWS [...] by Thor Carcamo M.D. T: Report ID: [id number] Reading Location: [id number] Procedure Note Thor Carcamo MD - 07/05/2024 [...] by Thor Carcamo M.D. T: Report ID: [id number] Reading Location: [id number] Janie FLORES IMG XR PROCEDURES Final R esult * Colonoscopy (08/24/2017) Anatomical Region Laterality Modality Other Historical Provider ENDOSCOPY PROCEDURES Arlen kelley Result from Last 3 Months or Most Recently Relevant to Health Maintenance Insurance HUMANA MEDICARE HMO HUMANA MEDICARE HMO Care Teams Client Relations Representative Relationship Specialty Start Date End Date Cali Jimenes DO PCP - General Family Practice 12/22/22
--- OUTSIDE RECORDS SUMMARY | 2024-10-01 10:32 | XMS_ITS | Encounter Summary ---
Author Organization [facility] Address [address] [place] [address] Phone Care Team Providers Care Lettuce Cutter Name Role Phone Cali Jimenes Primary Care Provider [phone] Mello Palacios MD Unavailable Reason for Referral * Radiology Services (Routine) - Open Specialty Diagnoses / Procedures Referred By Contac t Referred To Contact Radiology Diagnoses Personal history of tobacco use, presenting hazards to health Procedures CT CHEST SCREENING WO Mello Palacios MD [address] [place] [address] Phone: tel: fax: Referral ID Status Reason Start Date Expiration Date Visits Re quested Visits Authorized [id number] Open 08/25/2024 1 1 ER DEVELOPMENT MANAGER Encounter Details Date Type Department Care Team (Late st Contact Info) Description 08/23/2024 Results Follow-Up [facility] - Pulmonology & Sleep Medicine [facility] [address] [place] [address] Mello Palacios MD [address] [place] [address] Personal history of tobacco use, presenting hazards to health (Primary Dx) Social History Tobacco Use Types Packs/Day Years Used Date Smoking Tobacco: Some Days Cigarettes 0.5 40 Smokeless Tobacco: Never Comments:donw to a couple a day Alcohol [...] on file Sexual Orientation Not on file documented as of this encounter Plan of Treatment Upcoming Encounters Date Type Department Care Team (Late st Contact Info) Description 10/21/2024 10:15 AM CDT Office Visit [facility] - Pulmonology & Sleep Medicine [facility] [address] [place] [address] Mello Palacios MD [address] [place] [address] Scheduled Orders Name Type Priority Associated Diagnoses Orde r Schedule CT CHEST SCREENING WO Imaging Routine Personal history of tobacco use, presenting hazards to health Expected: 08/25/2025, Expires: 02/22/2026 documented as of this encounter Visit Diagnoses Diagnosis Personal history of tobacco use, presenting hazards to health- Primary documented in this encounter Care Teams Lettuce Cutter Relationship Specialty Start Date End Date Cali Jimenes DO PCP - General Family Medicine 08/23/19 Mello Palacios MD [address] [place] [address] Consulting Physician Pulmonary Disease 03/04/22 documented as of this encounter
--- OUTSIDE RECORDS SUMMARY | 2024-10-01 10:32 | XMS_ITS | CONTINUITY OF CARE DOCUMENT ---
Author Name mal resendez Address Unknown Organization [facility] Address [address] [facility] [address] [place] [address] Phone [phone] Care Team Providers Care Heel Seater Name Role Phone ERYN PATTERSON MD Unavailable [phone] INSURANCE PROVIDERS Payer name Policy type / Coverage type Andrea red constitution party ID [employer] Medicaid 0 [id number] [facility] plan [id number]
--- OUTSIDE RECORDS SUMMARY | 2024-10-01 10:32 | XMS_ITS | Continuity of Care Document ---
Author Organization [facility] Address [address] [address] [place] [address] Phone Care Team Providers Care Manager Action Name Role Phone Ginny FARFAN, Lei Unavailable Unavailable Allergies, Adverse Reactions, Alerts Substance Reaction Status Criticality codeine Itching Active No Information Medications Medication Instructions Dosage Effective Dates (start - stop) Status Comments Ultram 50 mg tablet take 1 tablet (50MG) by oral route every 6 hours as needed - Active tramadol 50 mg Tab take 1 tablet (50MG) by oral route every 6 hours as needed 50 MG - Active colchicine 0.6 mg Tab take 2 tablet (1.2MG) by oral route initially, then take 1 tablet in 1 hour - Active HYDROCODONE-ACETAM INOPHEN (unknown strength) Not Available - Active Procedures Procedure Date MU Reporting OFFICE/OUTPATIENT VISIT EST MU Reporting MU Reporting POSTOP FOLLOW-UP VISIT MU Reporting OFFICE/OUTPATIENT VISIT EST MU Reporting Advance Directives Directive Yes / No Effective Date File Name Resuscitation Not Answered N/A N/A Life Support Not Answered N/A N/A Intubation Not Answered N/A N/A Antibiotics Not Answered N/A N/A IV Fluid Support Not Answered N/A N/A Tube Feed Not Answered N/A N/A Other Directive N/A N/A WARNING:The information contained in this section is historical and is provided for information only and does not constitute a legal document or any assurance that the information is still accurate. Please verify the information with the lisa of the legal document before using it for clinical purposes. Encounters Encounter Description Practice Location Reason(s) For Visit Diagnoses Date Provider Providers Copied on Encounter OFFICE/OUTPA TIENT VISIT EST [facility], [address] [address], [place], [address], [place] tel:[phone] [facility] s/p L valeri hardware rmv (chief complaint) Fracture of calcaneus, closed 3 Bagwe Lei. [address] [facility] [address] , [place], [place], [id number] . tel: [phone] [facility], [address] [address], [place], [address], [place] tel:[phone] [facility] s/p L valeri hardware removal (chief complaint) Fracture of calcaneus, closed 2 Bagwe Lei. [address] [facility] [address] , [place], [place], [id number] . tel: [phone] [facility], [address] [address], [place], [address], [place] tel:[phone] [facility] W/C - s/p left valeri HW removal (chief complaint) Fracture of calcaneus, closed 2 Bagwe Lei. [address] [facility] [place] [place], [id number] . tel: [phone] OFFICE/OUTPA TIENT VISIT EST [facility], [address] [facility] [address] [address], [place], [address], [place] tel:[phone] [facility] [place] s/p ORIF L valeri (chief complaint) Fracture of calcaneus, closed 2 Bagwe Lei. [address] [facility] [address] , [place], [place], [id number] . tel: [phone] [facility], [address] [address], [place], [address], [place] tel:[phone] [facility] [place] s/p ORIF L valeri (chief complaint) Fracture of calcaneus, closedUnspecified arthropathy involving ankle and foot 2 Bagwe Lei. [address] [address] , [place], [place], [id number] . tel: [phone] [facility], [address] [facility] [address], [address], [place] tel:[phone] [facility] No Information 2 Bagwe Lei. [address] [address] , [place], [place], [id number] . tel: [phone] [facility], [address], [address], [place] tel:[phone] [facility] lt valeri. (chief complaint) Fracture of calcaneus, closed 0 2 Bagwe Lei. [address] [address] , [place], [place], [id number] . tel: [phone] [facility], [address] [facility] [address], [address], [place] tel:[phone] [facility] [place] S/P ORIF L Calcaneus (chief complaint) Unspecified arthropathy involving ankle and footACUTE GOUTY ARTHROPATHY 2 Bagwe Lei. [address] [address] , [place], [place], [id number] . tel: [phone] [facility], [address] [facility] [address], [address], [place] tel:[phone] [facility] [place] LEFT CALCANEUS ORIF (chief complaint) Fracture of calcaneus, closed 2 Bagwe Lei. [address] [facility] [address] , [place], [place], [id number] . tel: [phone] [facility], [address] [facility] [address], [address], [place] tel:[phone] [facility] No Information 2 Bagwe Lei. [address] [facility] [place], [place], [id number] . tel: [phone] Family History Family Member Type Diagnosis Age At Onset Problem (finding) Family history of seizu re disorder Payers Payer name Insurance type Covered libertarian ID Authoriza tion(s) No Information Social History Type Description Quantity Date Captured Comments Alcohol Use Details No Caffeine Use Details Unknown Tobacco Use Status No Information Smoking Status Smoker, current status unknown M Sex Male Chief Complaint And Reason For Visit From encounter dated '09/13/2012 08:35'. s/p L valeri hardware rmv (chief complaint) Reason For Referral Reason For Referral No Information History Of Present Illness Encounter Date Complaint History Of Prese nt Illness No Information Functional Status Date Functional Assessmen t No Information Instructions Date Instruction Additional Infor mation Limit activity Begin weight bearing Discussed wound care Progress until full strength Resume normal activity Progress until full ROM Advance activity as tolerated Progress until full strength Resume normal activity return to work without restricti on Progress until full ROM Follow exercise program Begin weight bearing Advance activity as tolerated Advance activity as tolerated continue physical therapy Elevate as needed Discussed post op care/precautio ns Begin weight bearing elevate limb above heart NSAIDs as needed use crutches temporarily non WB begin ROM as tolerated Assessments Type Assessment Date No Information Patient Care Teams Name Effective Dates (start - stop) Status Members No Information
--- OUTSIDE RECORDS SUMMARY | 2024-10-01 10:32 | XMS_ITS | Clinical Summary ---
Author Organization [facility] Address [address] [place] [address] Care Team Providers Care Retina Subspecialist Name Role Phone Cali Jimenes DO Primary Care Provider [phone] Mello Palacios MD Unavailable Allie Mcqueen Unavailable [phone] Allergies No known active allergies Medications atorvastatin 20 MG tabletIndicatio ns:Dyslipidemia Take 1 tablet (20 mg total) by mouth nightly at bedtime. 30 tablet 3 0 Active naproxen 500 MG tabletIndicatio ns:Costochondri tis Take 1 tablet (500 mg total) by mouth 2 (two) times daily with meals. 60 tablet 0 Active baclofen 10 MG tabletIndicatio ns:Back pain Take 1 tablet (10 mg total) by mouth 3 (three) times daily. 30 tablet 0 Active azelastine 0.1 % nasal spray USE 1 SPRAY IN EACH NOSTRIL EVERY 12 HOURS 1 Active HYDROcodone-levon taminophen 5-325 MG tablet Take 1 tablet by mouth every 6 (six) hours as needed. 1 Active albuterol sulfate HFA 108 (90 Base) MCG/ACT inhaler Proventil HFA 90 mcg/actuation aerosol inhaler Inhale 2 puff(s) 3 times a day by inhalation route as needed for 30 days. Active budesonide-form oterol (SYMBICORT) 160-4.5 MCG/ACT inhalerIndicati ons:Other emphysema (CMS/HCC HHS/HCC) Inhale 2 puffs into the lungs 2 (two) times daily. 10.2 g 3 2 Active SPIRIVA RESPIMAT 2.5 MCG/ACT inhaler (SPIRIVA RESPIMAT)Indica tions:Other emphysema ([facility]) INHALE 1 PUFF BY MOUTH EVERY DAY NEEDED 4 g 2 Active guaiFENesin-cod eine (GUAIFENESIN AC) 100-10 MG/5ML syrupIndication s:Cough Indications: Cough TAKE 5 TO 10 ML BY MOUTH EVERY 4 HOURS NEEDED FOR COUGH 240 mL 3 Active Active Problems Problem Noted Date Diagnosed Date Cyst of skin 05/09/2022 Dyslipidemia 11/07/2020 GERD (gastroesophageal reflux disease) 0 ANNA (obstructive sleep apnea) 08/16/2019 Pulmonary HTN ([facility]) 08/16/2019 Tobacco use disorder 08/16/2019 Achilles tendinosis 08/03/2019 Other emphysema ([facility]) 08/01/2019 Closed nondisplaced fracture of body of left calcaneus with routine healing 08/01/2019 Wrist fracture, left 04/16/2015 Resolved Problems Problem Noted Date Diagnosed Date Resolved Date Screening for prostate cancer 11/07/2020 11/12/2020 Encounter for preventive health examination 04/14/2014 03/16/2020 Family History Medical History Relation Comments Alcohol Abuse Father Relation Status Comments Father Social History Tobacco Use Types Packs/Day Years Used Date Smoking Tobacco: Every Day Smokeless Tobacco: Never Alcohol Use Standard Drinks/Week Comments Yes 0 (1 standard drink = 0.6 oz pur e alcohol) PHQ-2 Answer Date Recorded PHQ-2 Score - If the patient scores above 3, please move on to questions 3-9 0 11/06/2021 Sex and Gender Information Value Date Recorded Sex Assigned at Not on file Legal Sex Male 8:09 PM CDT Gender Identity Not on file Sexual Orientation Not on file Last Filed Vital Signs Vital Sign Reading Time Taken Comments Blood Pressure 142/92 05/26/2023 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 Pulse 59 05/26/2023 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 Temperature 35.3 C (95.6 F) 09/19/2019 8:49 AM CDT Respiratory Rate - - Oxygen Saturation 95% 08/03/2019 9:07 AM MACHINE DRILLER Inhaled Oxygen Concentration - - Weight 88.9 kg (196 lb) 05/26/2023 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 Height 185.4 cm (6' 1 ) 05/26/2023 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 Body Mass Index 25.86 05/26/2023 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 Plan of Treatment Health Maintenance Due Date Last Done Comments Colorectal Cancer Screening Colonoscopy (10 Years) 1960 Pneumococcal Vaccine: 65+ Ye ars (1 of 2 - PCV) 01/07/1964 Hepatitis C 01/07/1976 DTaP, Tdap and Td Vaccines ( 1 - Tdap) 1977 Zoster Vaccines (1 of 2) 01/07/2008 RSV Immunization or 60+ Years (1 - Risk 60-74 years 1-dose series) 2018 Annual Medicare Wellness Visit 2023 COVID-19 Vaccine ( - 2023-2 5 season) 2024 Influenza Adult (#1) 2024 Meningococcal B Vaccine Aged Out No l onger eligible based on patient's age to complete this topic Meningococcal Vaccine Aged Out No zoya ky eligible based on patient's age to complete this topic RSV Immunizations Under 20 Months Aged Out No longer eligible based on patient's age to complete this topic Insurance [facility] [employer] Care Teams Retina Subspecialist Relationship Specialty Start Date End Date Cali Jimenes DO PCP - General FAMILY PRACTICE 07/11/19 Mello Palacios MD [address] [place] [phone] Referring Physician PULMONARY DISEASE 06/10/22 Allie Mcqueen, PA [address] [place] [phone] PHYSICIAN MASTER [employer] YACHT 05/22/23
--- OUTSIDE RECORDS SUMMARY | 2024-10-01 10:32 | XMS_ITS | Data Portability ---
Author Organization [facility] DARLINEApurva Address [address] [place] [address] Assessment No assessment recorded. Plan of Treatment Reminders Order Date Submit Date Provider Last Modified By Organization Details Last Modified Time Details Appointments None recorded. Lab rapid strep group A, throat 2017 018 [facility] In-Office Order, Internal Use Only DO Not Attach Compendium DO Not Attach Compendium, Do Not Delete/merge, [id number] 15:44:16 Referral pulmonolog ist referral - Please Call Patient to schedule appt. Thank You 2018 019 mary ellen Palacios MD, [address] [facility], Third Floor, [place], [address], 9 10:18:24 Procedures None recorded. Surgeries None recorded. Imaging XR, chest 2018 019 [facility] (Imaging), [address] [place] [address] [place] [address], [address], 9 18:16:41 Medication Orders tobramycin 0.3 % eye drops 2018 019 INTERFACE [facility] #17064, [address] , [place], [place], [id number], 9 13:09:36 Zithromax Z-Eulogio 250 mg tablet 2018 019 INTERFACE [facility] #55308, [address], [place], [place], [id number], 9 13:09:36 Spiriva Respimat 2.5 mcg/actuat ion solution for inhalation 2018 019 [facility] #60358, [address], [place], [place], [id number], 9 16:20:39 amoxicilli n 500 mg-potassi um clavulanat e 125 mg tablet 2017 018 [facility] #04701, [address], [place], [place], [id number], 9 11:53:54 amoxicilli n 500 mg-potassi um clavulanat e 125 mg tablet 2017 018 [facility] #87607, [address], [place], [place], [id number], 9 11:53:54 Tussionex Pennkineti c ER 10 mg-8 mg/5 mL suspension ,extended release 2017 018 [facility] #70286, [address], [place], [place], [id number], 8 11:28:37 omeprazole 20 mg capsule,de layed release [email or web address] [address] [facility] #37900, [address], [place], [place], [id number], 9 12:55:57 Symbicort 160 mcg-4.5 mcg/actuat ion HFA aerosol inhaler 2016 017 [facility] #80576, [address], [place], [place], [id number], 7 10:44:03 Patient TargetsNo targets recorded. Patient Instructions Encounter Date Encounter Id Patient Instructions Last Modified By Organization Details Last Modified Time 10/27/2016 [id number] deciding about using medicines to quit smoking [facility] Not available 10/27/2016 10:44:05 Quitting Tobacco : Care Instructions [facility] Not available 10/27/2016 10:44:05 high cholesterol : care instructions [facility] Not available 10/27/2016 10:44:05 chronic obstructive pulmonary disease (COPD): care instructions [facility] Not available 10/27/2016 10:44:05 learning about copd and how to prevent lung infections [facility] Not available 10/27/2016 10:44:05 07/23/2017 [id number] Quitting Tobacco : Care Instructions [facility] Not available 07/23/2017 11:28:09 chronic obstructive pulmonary disease (COPD): care instructions [facility] Not available 07/23/2017 11:28:09 learning about copd and how to prevent lung infections [facility] Not available 07/23/2017 11:28:09 sore throat: car e instructions [facility] Not available 07/23/2017 11:28:09 12/04/2017 [id number] Quitting Tobacco : Care Instructions [facility] Not available 12/04/2017 17:13:53 chronic obstructive pulmonary disease (COPD): care instructions [facility] Not available 12/04/2017 17:13:53 learning about copd and how to prevent lung infections [facility] Not available 12/04/2017 17:13:53 bronchitis: care instructions [facility] Not available 12/04/2017 17:13:53 02/18/2019 [id number] Quitting Tobacco : Care Instructions si Not available 02/18/2019 16:20:31 chronic obstructive pulmonary disease (COPD): care instructions si Not available 02/18/2019 16:20:31 learning about copd and how to prevent lung infections [facility] Not available 02/18/2019 16:20:31 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 Thank You Referring Physician: Najma Chisholm, Internal Medicine, Encounter Date: 02/18/2019 Results Created Date Observation Date Name Description Value Unit Range Abnormal Flag Note LastModifiedBy Organization Detail LastModifiedTime 10/23/19 17 10/23/2016 gluco se krishna ance test, post- 75G, 3 speci mens glucose, fasting 96 mg/dL 65-99 Not Available [facility] ([facility]) [address] [place], [address], 10/23/2016 06:14:30 10/23/19 17 10/23/2016 gluco se krishna ance test, post- 75G, 3 speci mens glucose, 1/2 hour TNP TEST NOT PERFO RMED Not Available [facility] ([facility]) [address] [place], [address], 10/23/2016 06:14:30 10/23/19 17 10/23/2016 gluco se krishna ance test, post- 75G, 3 speci mens glucose, 1 hour 121 mg/dL 65-199 Not Available [facility] ([facility]) [address] [place], [address], 10/23/2016 06:14:30 10/23/19 17 10/23/2016 gluco se krishna ance test, post- 75G, 3 speci mens glucose, 1 1/2 hour TNP TEST NOT PERFO RMED Not Available [facility] ([facility]) [address] [place], [address], 10/23/2016 06:14:30 10/23/19 17 10/23/2016 gluco se krishna ance test, post- 75G, 3 speci mens glucose, 2 hour 95 mg/dL 65-139 Not Available [facility] ([facility]) [address] [place], [address], 10/23/2016 06:14:30 10/23/19 17 10/23/2016 gluco se krishna ance test, post- 75G, 3 speci mens glucose, 3 hour TNP TEST NOT PERFO RMED Not Available [facility] ([facility]) [address] [place], [address], 10/23/2016 06:14:30 10/23/19 17 10/23/2016 gluco se krishna ance test, post- 75G, 3 speci mens glucose, 4 hour TNP TEST NOT PERFO RMED Not Available [facility] ([facility]) [address] [place], [address], 10/23/2016 06:14:30 10/23/19 17 10/23/2016 gluco se krishna ance test, post- 75G, 3 speci mens glucose, 5 hour TNP TEST NOT PERFO RMED Not Available [facility] ([facility]) [address] [place], [address], 10/23/2016 06:14:30 10/23/19 17 10/23/2016 gluco se krishna ance test, post- 75G, 3 speci mens glucose, 6 hour TNP TEST NOT PERFO RMED Not Available [facility] ([facility]) [address] [place], [address], 10/23/2016 06:14:30 10/23/19 17 10/23/2016 HbA1c (hemo globi n A1c), blood hemoglobin A1C 5.9 % 4.8-5. 6 above high normal PRE-D IABET ES: 5.7 - 6.4 DIABE CHER: >6.4 GLYCE JACKIE CONTR OL FOR ADULT S WITH DIABE CHER: <7.0 Not Available [facility] ([facility]) [address] [place], [address], 10/23/2016 06:14:30 07/23/19 18 07/23/2017 rapid strep group A, throa t Strep negati ve Not Available In-Office Order Internal Use Only DO Not Attach Compendium DO Not Attach Compendium, Do Not Delete/merge, [id number] 07/23/2017 11:26:11 05/13/20 18 05/13/2018 XR, knee, 3 view No observ ation record ed. [facility] [address] [facility] , [place], [address], 05/17/2018 15:48:28 05/13/20 18 05/13/2018 XR, knee No observ ation record ed. [facility] [address] [facility] , [place], [address], 05/17/2018 15:48:15 02/22/20 19 02/21/2019 XR, chest No observ ation record ed. [facility] ([facility]) [address], [place], [address], 02/28/2019 13:56:37 05/17/20 20 05/17/2020 XR, finge r(s) No observ ation record ed. [facility] [address] [place], [address], 05/17/2020 15:30:24 Result Notes None recorded. Problems Name Problem SNOMED Code Status Onset Date Resolution Date Notes Provider Name and Address Organization Details Recorded Time Pain radiating to right shoulder 173677846 Active Not Available [facility] 15:20:49 Prepatellar bursitis 28837011 Active Not Available [facility] 15:20:49 Fracture of distal end of radius and ulna 102647963 Active Not Available [facility] 15:20:49 Fatigue 42163055 Active Not Available [facility] 15:20:50 Unintentional weight loss 202587403 Active Not Available [facility] 15:20:49 Depressive disorder 58733263 Active Not Available [facility] 15:20:49 Hyperlipidemi a 17670504 Active Not Available [facility] 15:20:50 Chronic obstructive pulmonary disease 95418034 Active Not Available [facility] 15:20:50 Tobacco dependence syndrome 60837075 Active Not Available [facility] 15:20:50 Impotence Active Not Available [facility] 15:20:49 Degenerative joint disease of hand 00820880 Active Not Available [facility] 05/24/202 1 15:20:49 Problem Notes None recorded. Procedures Surgical History Date Name Laterality Status Provider Name and Address Organization Details Recorded Time 2 Other completed Nagi Johnathan [facility] 07/14/2014 10:27:51 9 Back Surgery completed Nagi Mann [facility] 07/14/2014 10:27:51 1 Tonsillectomy completed Nagi Johnathan [facility] 07/14/2014 10:27:51 Imaging Results Imaging Date Name Status LastModified by Organiz ation Details LastModified Time 05/13/2018 XR, knee, 3 view completed [address] [place], [address], 05/17/2018 15:48:28 05/13/2018 XR, knee [place] [address] [place], [address], 05/17/2018 15:48:15 02/21/2019 XR, chest completed [facility] (Imaging) [address] [facility] [address] [place] [address], [address], 02/28/2019 13:56:37 05/17/2020 XR, finger(s) completed [facility] [address] [place], [address], 05/17/2020 15:30:24 Procedure Notes None recorded. Medical Equipment None Reported. Allergies No known drug allergies Medications Name Sig Start Date Stop Date Status Note LastModified by Organization Details LastModified Time Prescript ion - New 07/23 completed Not Available Not Available Not Available cyclobenz aprine 10 mg tablet Take 1 tablet as needed by oral route at bedtime for 30 days. 07/30 completed Not Available Not Available Not Available azithromy david 250 mg tablet TAKE 2 TABLETS BY MOUTH ON DAY 1, THEN TAKE 1 TABLET BY MOUTH DAILY FOR 4 DAYS active Not Available Not Available No t Available hydrocodo ne 5 mg-acetam inophen 325 mg tablet 07/30 completed Not Available Not Available Not Available Viagra 50 mg tablet Take 1 tablet as needed by oral route as directed for 30 days. 07/30 completed Not Available Not Available Not Available Tamiflu 75 mg capsule 07/30 completed Not Available Not Available Not Available tobramyci n 0.3 % eye drops INSTILL 1 DROP INTO AFFECTED EYE(S) BY OPHTHALM IC ROUTE EVERY 4 HOURS 2018 active Not Available Not Available Not Avai lable omeprazol e 20 mg capsule,d elayed release Take 1 capsule every day by oral route before meals for 30 days. 05/03 completed Not Available Not Available Not Available Proventil HFA 90 mcg/actua tion aerosol inhaler active 08/04/14 Not Available Not Available Not Available pravastat in 20 mg tablet 07/30 completed Not Available Not Available Not Available hydrocodo ne 10 mg-chlorp heniramin e 8 mg/5 mL oral susp extend.re l 12hr TAKE 5 ML BY MOUTH EVERY 12 HOURS FOR 5 DAYS 2017 active Not Available Not Available Not Avai lable fluoxetin e 20 mg capsule TAKE ONE CAPSULE BY MOUTH EVERY DAY AT DINNER 07/30 completed Not Available Not Available Not Available naproxen 500 mg tablet TAKE 1 TABLET BY MOUTH TWICE DAILY AFTER A MEAL NEEDED 07/30 completed Last office visit 01/29/15. Last fill 01/29/15. Medicati on verified per last encounte r. Medicati on approved . Not Available Not Available Not Available amoxicill in 500 mg-potass ium clavulana te 125 mg tablet Take 1 tablet every 12 hours by oral route after meals for 10 days. 11/15 completed Not Available Not Available Not Available Symbicort 160 mcg-4.5 mcg/actua tion HFA aerosol inhaler Inhale 2 puffs twice a day by inhalati on route as directed for 30 days. 2016 active Not Available Not Available Not Avai lable CapCof 2 mg-5 mg-10 mg/5 mL oral liquid active Not Available Not Available Not Available Spiriva Respimat 2.5 mcg/actua tion solution for inhalatio n Inhale 1 puff every day by inhalati on route as needed for 30 days. 2018 active Not Available Not Available Not Avai lable Vitals Date Recorded Body height Body mass index (BMI) Body weight Body temperature Oxygen saturation Oxygen saturation in Arterial blood by Pulse oximetry Heart rate Systolic blood pressure Diastolic blood pressure Provider Name and Address Organization Details Last Updated DateTime 8 184.15 cm 26.5 kg/m2 15002.5 7 g 97.8 [degF] 97 % 97 % 71 /min 110 mm[Hg] 80 mm[Hg] Orville Johnson MA [place] [facility] 8 10:47:22 Date Recorded Body height Body mass index (BMI) Body weight Oxygen saturation Oxygen saturation in Arterial blood by Pulse oximetry Heart rate Body temperature Systolic blood pressure Diastolic blood pressure Provider Name and Address Organization Details Last Updated DateTime 8 184.15 cm 25 kg/m2 26393.2 g 97 % 97 % 69 /min 98 [degF] 94 mm[Hg] 64 mm[Hg] Orville Johnson MA [place] [facility] 8 16:59:59 Date Recorded Body weight Oxygen saturation Oxygen saturation in Arterial blood by Pulse oximetry Heart rate Body temperature Systolic blood pressure Diastolic blood pressure Provider Name and Address Organization Details Last Updated DateTime 9 74296.7 g 94 % 94 % 74 /min 98.1 [degF] 126 mm[Hg] 76 mm[Hg] Shelley Peralta MA [facility] 9 16:06:04 Date Recorded Body height Body mass index (BMI) Body weight Body temperature Oxygen saturation Oxygen saturation in Arterial blood by Pulse oximetry Heart rate Systolic blood pressure Diastolic blood pressure Provider Name and Address Organization Details Last Updated DateTime 9 184.15 cm 26.1 kg/m2 66229.9 4 g 97.7 [degF] 97 % 97 % 66 /min 112 mm[Hg] 80 mm[Hg] Orville Johnson MA [facility] 9 13:01:14 Date Recorded Body height Body weight Body mass index (BMI) Heart rate Body temperature Oxygen saturation Oxygen saturation in Arterial blood by Pulse oximetry Systolic blood pressure Diastolic blood pressure Provider Name and Address Organization Details Last Updated DateTime 7 184.15 cm 18893.7 2 g 27.4 kg/m2 67 /min 97.8 [degF] 95 % 95 % 94 mm[Hg] 68 mm[Hg] Orville Johnson [place] [facility] 7 10:24:30 Social History None recorded. Functional Status None recorded. Mental Status None recorded. Family History Relationship Description Onset Age of this Age Resolved Age Notes LastModified by Organization Details LastModified Time Father Alcohol abuse [email or web address] Not available 2014 10:27:51 Medical History Condition Response Coronary Artery Disease N Other N Atrial Fibrillation N High Blood Pressure N Kidney or Bladder Problems N Thyroid Problems N GI Problems N Depression Y COPD N Blood Clots N Skin Problems N Anemia N Heart Attack ([place]) N Anxiety Disorder N Diabetes N Muscle, Joint, or Bone Problems Y Seizures/Epilepsy N Acid Reflux (GERD) N Cancer N Stroke N Asthma N Allergies N High Cholesterol Y Hepatitis N Liver Disease N Headaches N Heart Failure N Osteoporosis N Past Encounters Encounter ID Performer Location Encounter Start Date Encounter Closed Date Diagnosis/Indication Diagnosis SNOMED-CT Code Diagnosis ICD10 Code Diagnosis Note [id number] Sarah Goel (Adult Med) [address] [place] [address] 07/14/2014 10:08:59 07/14/2014 15:14:43 Depressive disorder 73940983 Chronic ob structive pulmonary disease 50521104 Tobacco de pendence syndrome 64760522 Impotence 715157004 Degenerati ve joint disease of hand 55556052 [id number] Shelley Gasca Manasa (Adult Med) [address] [place] [address] 01/29/2015 10:25:42 01/29/2015 13:49:56 Pain radiating to right shoulder 152632278 Prepatellar bursitis 19507113 Chronic ob structive pulmonary disease 92002812 Tobacco de pendence syndrome 01358061 Hyperlipidemia 04890932 [id number] MD Manasa Gan (Adult Med) [address] [place] [address] 11/27/2015 16:02:11 11/27/2015 16:51:00 Chronic obstructive pulmonary disease 15847152 J44.9 Tobacco de pendence syndrome 02259743 F17.290 Fatigue 23243499 R53.83 Unintentio nal weight loss 649232926 R63.4 [id number] MD Man[facility] (Adult Med) [address] [place] [address] 07/30/2016 11:41:01 07/30/2016 12:58:33 Acute bronchitis 88853396 J20.9 Chronic ob structive pulmonary disease 15151920 J44.9 Tobacco de pendence syndrome 24324367 F17.290 Screening for malignant neoplasm of colon 110687453 Z12.11 Abnormal f inding on evaluation procedure 873878502 Z00.01 [id number] MD Manasa Gan (Adult Med) [address] [place] [address] 0 09/24/2016 11:08:47 09/24/2016 11:25:25 [id number] MD Manasa Gan (Adult Med) [address] [place] [address] 10/27/2016 09:35:00 10/27/2016 16:52:11 Chronic obstructive pulmonary disease 95789262 J44.9 Had PFT. Hyperlipidemia 80137596 E78.5 Low saturated fart diet, exercise, has gained some weight. On cholestero l lowering medication . Tobacco de pendence syndrome 50011610 F17.290 Acid reflux 749306637 K2 1.9 He has had night cough and ventolin sees not helping, he has cut down cigarettes to about 4/ day, suspecting might be acid reflux. [id number] [facility] [address] [place] [address] 07/23/2017 10:21:11 07/23/2017 11:32:16 Acute pharyngitis 314744452 J02.9 Chronic ob structive pulmonary disease 09682786 J44.9 Had PFT. Nicotine dependence 5629 4008 F17.377 [id number] MD Manasa Gan (Adult Med) [address] [place] [address] 12/04/2017 16:16:12 12/04/2017 17:27:02 Acute bronchitis 32159480 J20.9 Chronic ob structive pulmonary disease 52907951 J44.9 Had PFT. Nicotine dependence 5629 4008 F17.116 [id number] MD Manasa Gan (Adult Med) [address] [place] [address] 02/18/2019 15:55:04 02/21/2019 12:15:07 Chronic obstructive pulmonary disease 78388666 J44.9 Had PFT. Nicotine dependence 5629 4008 F17.477 [id number] [facility] [address] [place] [address] 05/03/2019 12:41:52 05/04/2019 09:52:55 Hordeolum externum of lower eyelid 396459704 H00.019 optional ophthalmol ogy referral, if not resolves. Health Concerns Section Related Observation LastModified by Organization Detai ls LastModified Time None Recorded Concern Status LastModified by Organization Details LastModified Time None Recorded Advance Directives Directive None Recorded Payers Encounter Date Sequence Insurance Name Policy Number Policy Trinidad Covered Member ID Trinidad Member ID Guarantor Name 10/27/2016 1 [place] [id number] Jordon Irwindale [id number] Jordon Irwindale 07/23/2017 1 [place] [id number] Jordon Irwindale [id number] Jordon Irwindale 12/04/2017 1 [place] [id number] Jordon Irwindale [id number] Jordon Irwindale 05/03/2019 1 [place] Jordon Dewey [id number] Jordon Dewey Notes Date Note Type Note Provider Name and Address Organization Details Recorded Time 07/23/2017 text/html He is going to s GI specialist for the colonoscopy and rectal bleeding, and bad taste next month., still smokes cigarettes. NKDA. Sore throat. On prednisolon earlier. Najma Chisholm MD Attn: [address] [place], [address], [facility] 07/23/2017 11:30:58 12/04/2017 text/html Chest cold for 2 weeks, NKDA, smokes. Najma Chisholm MD Attn: Accounting[address] [place], [address], [facility] 12/04/2017 17:13:56 02/18/2019 text/html On spiriva, peggy le from his lung specialist but he did not go back for F/U. he did not to the equal opportunity specialist due to insurance issue and he forgot about,.NKDA. Has cut down to 2 cigarettes/day. Najma Chisholm MD Attn: Accounting[address] [place], [address], [facility] 02/18/2019 16:22:17 05/03/2019 text/html Left eye lid infected, swollen gland left jaw , also trying to cut down the cigarettes smoking, NKDA. Najma Chisholm MD Attn: Accounting[address] [place], [address], [facility] 05/03/2019 13:10:01
[2024-10-01 10:43] VITALS: BP 106/87; PULSE 76; RESP 15; TEMP 37.1; O2SAT 97
--- OUTSIDE RECORDS SUMMARY | 2024-10-01 11:45 | XMS_ITS | Clinical Summary ---
Author Organization [facility] Address [address] [place] [address] Phone Care Team Providers Care Recreation Facilities Supervisor Name Role Phone Cali Jimenes Primary Care [...] Department Care Team Description 08/23/2024 Results Follow-Up [facility] Pulmonology & Sleep Medicine [facility] [address] [place] [address] Mello Palacios MD Personal history of tobacco use, presenting hazards to health (Primary Dx) 08/19/2024 9:33 AM DE ICER - 08/19/2024 11:59 PM DE ICER [facility] [address] [place] [address] Mello Palacios MD Discharge Disposition: Discharged to home or Selfcare 08/17/2024 Travel 08/02/2024 Telephone [facility] Pulmonology & Sleep Medicine [facility] [address] [place] [address] Mello Palacios MD Medication Management 07/31/2024 Travel 07/27/2024 10:48 AM DE ICER - 07/27/2024 11:59 PM DE ICER [facility] [address] [place] [address] Mello Palacios MD Discharge Disposition: Discharged to home or Selfcare 07/25/2024 Travel 07/18/2024 10:45 AM DE ICER Office Visit [facility] Pulmonology & Sleep Medicine [facility] [address] [place] [address] Mello Palacios MD Centrilobular emphysema (HCC) (Primary [...] Comments Blood Pressure 120/72 07/18/2024 11:04 AM DE ICER Pulse 70 07/18/2024 11:04 AM DE ICER Temperature 36.4 C (97.6 F) 07/18/2024 11:04 AM DE ICER Respiratory Rate 14 07/18/2024 11:04 AM DE ICER Oxygen Saturation 96% 07/18/2024 11:04 AM DE ICER Inhaled Oxygen Concentration - - Weight 90.4 kg (199 lb 4.8 oz) 07/18/2024 11:04 AM DE ICER Height 188 cm (6' 2 ) 07/18/2024 11:04 AM DE ICER Body Mass Index 25.59 07/18/2024 11:04 AM DE ICER Plan of Treatment Upcoming Encounters Date Type Department Care Team (Late st Contact Info) Description 10/21/2024 10:15 AM CDT Office Visit [facility] - Pulmonology & [facility] Medicine [facility] [address] [place] [phone] Mello Palacios MD [address] [facility] [place] [address] Health Maintenance Due Date Last Done Comments [...] CHEST SCREENING WO Routine 08/19/2024 9:48 AM DE ICER Tobacco use disorder COMPLETE PFT W + W/O BRONCHODILATOR Routine 07/27/2024 Centrilobular emphysema (HCC) from Last 3 Months Results * CT CHEST SCREENING WO (08/19/2024 9:48 AM DE ICER) Anatomical Region Laterality Modality Chest N/A Computed Tomogra phy 08/19/2024 2:11 PM DE ICER Impressions 08/19/2024 2:14 PM DE ICER IMPRESSION: Unchanged small pulmonary nodules. No new suspicious pulmonary nodules. Ohlbyovo-qg-rddzdj emphysematous changes. Diffuse bronchial wall thickening which can be seen with chronic bronchitis. Severe coronary atherosclerotic calcifications. Mildly dilated ascending thoracic aorta measuring up to 4.1 cm. Lung-RADS category 2S: Benign appearance or behavior. Finding other than a pulmonary nodule which is potentially clinically significant. Recommendation: Low dose Screening CT of chest in 12 months. Narrative 08/19/2024 2:14 PM DE ICER EXAM DESCRIPTION: CT CHEST SCREENING WO REASON [...] 12/25/2021, 01/05/2023 FINDINGS: SMOKING RELATED LUNG DISEASE: Khrbjvjk-uy-ysjwvl emphysematous changes. Diffuse bronchial wall thickening which [...] Jhonny Silva M.D. NS: NS Report ID: [id number] Reading Location: [id number] Procedure Note Jhonny Silva MD - 08/19/2024 [...] 12/25/2021, 01/05/2023 FINDINGS: SMOKING RELATED LUNG DISEASE: Btksomak-hw-giyppa emphysematous changes. Diffuse bronchial wall thickening which [...] Jhonny Silva M.D. NS: NS Report ID: [id number] Reading Location: [place] [address] IMPRESSION: Unchanged small pulmonary nodules. No new suspicious pulmonary nodules. Lbtynhdt-aa-vtedji emphysematous changes. Diffuse bronchial wall thickening which can be seen with chronic bronchitis. Severe coronary atherosclerotic calcifications. Mildly dilated ascending thoracic aorta measuring up to 4.1 cm. Lung-RADS category 2S: Benign appearance or behavior. Finding other than a pulmonary nodule which is potentially clinically significant. Recommendation: Low dose Screening CT of chest in 12 months. Mello Palacios MD [facility] CT ORDERABLES Final Result from Last 3 Months Insurance MEDICARE C HUMANA Care Teams Recreation Facilities Supervisor Relationship Specialty Start Date End Date Cali Jimenes DO PCP - General Family Medicine 08/23/19 Mello Palacios MD [address] [place] [phone] Consulting Physician Pulmonary Disease 03/04/22
--- OUTSIDE RECORDS SUMMARY | 2024-10-01 11:45 | XMS_ITS | CONTINUITY OF CARE DOCUMENT ---
Author Name mal resendez Address Unknown Organization [facility] Address [address] [place] [address] Phone [phone] Care Team Providers Care Teaching Fellow Name Role Phone ERYN PATTERSON MD Unavailable [phone] INSURANCE PROVIDERS Payer name Policy type / Coverage type Andrea red republican ID [facility] [facility] Medicaid 0 [id number] [facility] [id number]
--- OUTSIDE RECORDS SUMMARY | 2024-10-01 11:45 | XMS_ITS | Continuity of Care Document ---
Author Organization [facility] Address [address] [address] [place] [address] Phone Care Team Providers Care Supervisor Plastics Name Role Phone Ginny FARFAN, Lei Unavailable [...] OFFICE/OUTPA TIENT VISIT EST [facility], [address] [address], [place], [address], [place] tel:[phone] [facility] s/p L valeri hardware rmv (chief complaint) Fracture of calcaneus, closed [address]. [address] [facility] [address] , [place], [place], [id number] . tel: [phone] [facility], [address] [address], [place], [address], [place] tel:[phone] [facility] s/p L valeri hardware removal (chief complaint) Fracture of calcaneus, closed 2 [address]. [address] [facility] [address] , [place], [place], [id number] . tel: [phone] [facility], [address] [address], [place], [address], [place] tel:[phone] [facility] W/C - s/p left valeri HW removal (chief complaint) Fracture of calcaneus, closed 2 [address]. [address] [facility] [place], [place], [id number] . tel: [phone] OFFICE/OUTPA TIENT VISIT EST [facility], [address] [facility] [address] [address], [place], [address], [place] tel:[phone] [facility] [place] s/p ORIF L valeri (chief complaint) Fracture of calcaneus, closed 2 [address] [address] [facility] [address] , [place], [place], [id number] . tel: [phone] [facility], [address] [address], [place], [address], [place] tel:[phone] [facility] Danya s/p ORIF L valeri (chief complaint) Fracture of calcaneus, closedUnspecified arthropathy involving ankle and foot 2 [address] , [place], [place], [id number] . tel: [phone] [facility], [address] [facility] [address], [address], [place] tel:[phone] [facility] No Information [address] , [place], [place], [id number] . tel: [phone] [facility], [address], [address], [place] tel:[phone] [facility] lt valeri. (chief complaint) Fracture of calcaneus, closed 0 [address] , [place], [place], [address] . tel: [phone] [facility], [address] [facility] [address], [address], [place] tel:[phone] [facility] Danya S/P ORIF L Calcaneus (chief complaint) Unspecified arthropathy involving ankle and footACUTE GOUTY ARTHROPATHY [address] , [place], [place], [address] . tel: [phone] [facility], [address] [facility] [address], [address], [place] tel:[phone] [facility] Danya LEFT CALCANEUS ORIF (chief complaint) Fracture of calcaneus, closed 2 [address] [address] [facility] [address] , [place], [place], [address] . tel: [phone] [facility], [address] [facility] [address], [address], [place] tel:[phone] [facility] No Information [address]. [address] [facility], [place], [place], [address] . tel: [phone] Family History Family Member Type Diagnosis Age At Onset Problem (finding) Family history of seizu re disorder Payers Payer name Insurance type Covered republican ID Authoriza tion(s) No Information Social History [...] Information Instructions Date Instruction Additional Infor mation Begin weight bearing Discussed wound care Limit activity Advance activity as tolerated Progress until full ROM Progress until full strength Resume normal activity Advance activity as tolerated Begin weight bearing Follow exercise program Progress until full ROM Progress until full strength Resume normal activity return to work without restricti on Begin weight bearing Discussed post op care/precautio ns Elevate as needed continue physical therapy Advance activity as tolerated begin ROM as tolerated elevate limb above heart NSAIDs as needed use crutches temporarily non WB Assessments Type Assessment Date No Information Patient Care Teams Name Effective Dates (start - stop) Status Members No Information
--- OUTSIDE RECORDS SUMMARY | 2024-10-01 11:45 | XMS_ITS | Encounter Summary ---
Author Organization [facility] Address [address] [place] [address] Phone Care Team Providers Care Protection Chief Industrial Plant Name Role Phone Cali Jimenes Primary Care Provider [phone] Mello Palacios MD Unavailable Reason for Referral * Radiology Services (Routine) - Open Specialty Diagnoses / Procedures Referred By Contac t Referred To Contact Radiology Diagnoses Personal history of tobacco use, presenting hazards to health Procedures CT CHEST SCREENING WO Mello Palacios MD [address] [place] [address] Phone: tel: fax: Referral ID Status Reason Start Date Expiration Date Visits Re quested Visits Authorized [id number] Open 08/25/2024 1 1 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 Encounter Details Date Type Department Care Team (Late st Contact Info) Description 08/23/2024 Results Follow-Up [facility] - Pulmonology & Sleep Medicine [facility] [address] [place] [address] Mello Palacios MD [address] [place] [address] Personal history of tobacco use, [...] Medical Group - Pulmonology & Sleep Medicine [facility] [address] [place] [address] Mello Palacios MD [address] [place] [address] Scheduled Orders Name Type Priority Associated Diagnoses Orde r Schedule CT CHEST SCREENING WO Imaging Routine Personal history of tobacco use, presenting hazards to health Expected: 08/25/2025, Expires: 02/22/2026 documented as of this encounter Visit Diagnoses Diagnosis Personal history of tobacco use, presenting hazards to health- Primary documented in this encounter Care Teams Protection Chief Industrial Plant Relationship Specialty Start Date End Date Cali Jimenes DO PCP - General Family Medicine 08/23/19 Mello Palacios MD [address] [place] [address] Consulting Physician Pulmonary Disease 03/04/22 documented as of this encounter
--- OUTSIDE RECORDS SUMMARY | 2024-10-01 11:45 | XMS_ITS | Clinical Summary ---
Author Organization [facility] Address [address] [place] [address] Care Team Providers Care Wet Roller Name Role Phone Najma Chisholm MD Primary Care Provider [phone] Source Comments [facility],non-owned Affiliates and Associated Physician Practices is amultiple site organization consisting of ambulatory clinics and hospital sitesin [place], [place], [place] and [place]. This disclosure is being madepursuant to the Care Everywhere program and may not contain all information available regarding this patient. Last updated 18.[facility] Allergies No known active allergies Social History [...] age to complete this topic Care Teams Wet Roller Relationship Specialty Start Date End Date Najma Chisholm MD [address] [place] [address] PCP - General Internal Medicine 12/26/15
--- NOTE | 2024-10-01 12:02 | ED_ITS ---
HPI - General Adult General Chief complaint: Unspecified Stated complaint: sinus infection? Time Seen by Provider: 10/01/24 11:30 History of Present Illness HPI narrative: 64-year-old otherwise healthy male with history of COPD. He presents to the emergency room with right-sided facial swelling in his maxillary sinuses. Went to urgent care yesterday and was diagnosed with sinusitis and sent home with Augmentin. He took Tylenol at home and his 1st dose of Augmentin but went to the ER as he was thing that is not improved. Denies any sore throat, worsening cough, fever, chills, vision pain, external rash or swelling. No ear pain or muffled hearing. Was otherwise in his normal state of health. No allergies to antibiotics that he knows of. No trauma or injury. Related Data Home Medications ?Medication ?Instructions ?Recorded ?Confirmed ?Last Taken ?Type budesonide-formoterol HFA 160 inhalation 12/19/22 Unknown History mcg-4.5 mcg/actuation aerosol inhaler (Symbicort) tiotropium bromide 2.5 inhalation 12/19/22 Unknown History mcg/actuation mist for inhalation (Spiriva Respimat) Allergies Allergy/AdvReac Type Severity Reaction Status Date / Time codeine Allergy Mild Unknown Verified 10/01/24 10:43 Review of Systems Review of Systems: As reviewed above in HPI [facility] Past Medical History Medical History Tobacco use COPD (chronic obstructive pulmonary disease) Surgical History Surgical History No pertinent past surgical history Family History Family History Father Alcoholism Mother Heart disease Social History Social History Smoking status: Current every day smoker Tobacco type: cigarettes Alcohol intake: current Substance use: never Substance use type: does not use Living arrangements: with family Gender identity (if verbalized by the patient): Male Sexual Orientation (if Verbalized by the Patient): Straight or Heterosexual Spiritual care concerns: No Exam Narrative: GENERAL: [Well-appearing, well-nourished, and in no acute distress.] HEAD: [Normocephalic, atraumatic.] EYES: [PERRLA and EOMI.] ENT: Nares clear, no rhinorrhea or epistaxis. Mucous membranes moist. Edentulous, no otitis, no dental abscess, tenderness to palpation over the right maxillary sinus, no tenderness over the left maxillary sinus, no mastoid tenderness, no tenderness over the auricle or pinna. No protrusion of the ear. NECK: Supple. CHEST: [Clear to auscultation. No respiratory distress.] HEART: [Regular rate and rhythm]. No murmur heard. [Normal peripheral pulses.] ABDOMEN: [Soft, nondistended], [nontender], [No rigidity or guarding] EXTREMITIES: Normal range of motion. [No edema.] SKIN: Warm, dry, no rash. NEURO: [No focal deficits]. Alert and oriented [x3.] PSYCH: [Normal mood and affect.] Course Vital Signs Vital signs: Vital Signs Temperature 37.1 C 10/01/24 10:43 Pulse Rate 76 10/01/24 10:43 Respiratory Rate 15 10/01/24 10:43 Blood Pressure 106/87 10/01/24 10:43 Pulse Oximetry 97 10/01/24 10:43 Temperature 37.1 C 10/01/24 10:43 Pulse Rate 76 10/01/24 10:43 Respiratory Rate 15 10/01/24 10:43 Blood Pressure 106/87 10/01/24 10:43 Pulse Oximetry 97 10/01/24 10:43 Medical Decision Making [facility] Narrative Medical decision making narrative: 64-year-old male with history of COPD presenting with evidence of right-sided maxillary sinusitis. Went to urgent care yesterday and diagnosed with sinusitis and prescribed Augmentin. Took 1 pill of this as well as Tylenol and came to the ER today as he was not having any improvement. He is otherwise very well- appearing not any acute distress he is afebrile with normal vital signs. Normal ear nose and throat examination aside from tenderness to percussion of the right maxillary sinus. He has no intraoral involvement or lesions. He is edentulous presently. He has normal vital signs. Suspicion presently is for acute bacterial maxillary sinusitis, viral maxillary sinusitis, less likely any occult fracture traumatic injuries given that he does not report any trauma or falls. Offered the patient CT images and further workup here but also counseled him on the fact that he only had 1 dose of antibiotics and has not taken effect yet. He would prefer to trial completing his antibiotics and pain control medications and return with any new concerns. Patient will be discharged home with ketorolac as well as decongestants and instructed to complete his antibiotics and return with any new or worsening symptoms. Patient will follow up with his regular doctor otherwise. Medical Records Medical records reviewed: Yes I reviewed the external patient's medical records. Vital Signs Vital Signs: Vital Signs Temperature 37.1 C 10/01/24 10:43 Pulse Rate 76 10/01/24 10:43 Respiratory Rate 15 10/01/24 10:43 Blood Pressure 106/87 10/01/24 10:43 Pulse Oximetry 97 10/01/24 10:43 Temperature 37.1 C 10/01/24 10:43 Pulse Rate 76 10/01/24 10:43 Respiratory Rate 15 10/01/24 10:43 Blood Pressure 106/87 10/01/24 10:43 Pulse Oximetry 97 10/01/24 10:43 Discharge Plan Discharge Clinical Impression: Acute maxillary sinusitis Patient Disposition: Home, Self-Care Condition: Stable Instructions: Antibiotic Form, Sinusitis (ED) Additional Instructions: Your signs and symptoms are very classic and consistent with maxillary sinusitis which is an infection in your in your sinuses in the right face. Continue taking the Augmentin that your prescribed and we will send you home with anti- inflammatory medications such as ketorolac as well as decongestant medications such as cetirizine. You can also take Tylenol for any other aches or pains/fevers. Take the antibiotics for next week until finishing them. If you have any worsening swelling, worsening pain, developing vision changes, inability to open and close your jaw, difficulty swallowing or any other concerns return to the emergency department for additional imaging and workup otherwise follow-up with your regular doctor on outpatient visit. Patient Language: Ukrainian Prescriptions: New loratadine [Claritin] 10 mg tablet 10 mg PO DAILY 10 Days Qty: 10 0RF ketorolac 10 mg tablet 10 mg PO Q8H PRN (Reason: pain) 5 Days Qty: 20 0RF Rx Instructions: maximum total duration of 5 days from all oral, intranasal, or parenteral formulations No Action budesonide-formoterol [Symbicort] 160-4.5 mcg/actuation HFA aerosol inhaler INHALATION Spiriva Respimat 2.5 mcg/actuation mist INHALATION Follow-up/Referrals: Jalil,Cali Carrillo DO [Primary Care Provider] - Time of Disposition: 12:02
[2024-10-01] MEDS: KETOROLAC 10 MG TABLET PO (12:06)
[2024-10-01 12:10] VITALS: BP 134/94; PULSE 74; RESP 15; TEMP 36.5; O2SAT 98
== END 2024-10-01 12:12 | disposition home or self-care (01) ==
PROVIDERS: Emergency Provider Student in an Organized Health Care Education/Training Program; PCP Family Medicine
DX: J01.00 Acute maxillary sinusitis, unspecified (principal); J44.9 Chronic obstructive pulmonary disease, unspecified; F17.210 Nicotine dependence, cigarettes, uncomplicated
CPT/HCPCS: 99283; A9270